=== PATIENT | female | born 1960 | race Caucasian/White ===

== ENCOUNTER → 2020-02-13 13:22 | Outpatient (BNVA) | payer OTHER, SELFPAY | PROVIDERS: PCP Family Medicine; Referring Provider Family Medicine; Visit Provider Obstetrics & Gynecology | DX: Z76.89 Persons encountering health services in other specified circumstances (principal) ==

== ENCOUNTER 2020-03-03 08:18 | Outpatient (REF) | payer OTHER, SELFPAY ==
--- NOTE | 2020-03-03 08:25 | MM_ITS ---
EXAMINATION: MM SCREENING DIGITAL BREAST TOMOSYNTHESIS, BILATERAL CLINICAL INFORMATION: Screening. Asymptomatic. Family history breast cancer, mother. The lifetime risk of breast cancer based on the Tyrer-Cuzick Model is 16%. COMPARISON: Mammography: 01/04/2019, 01/24/2018, 01/03/2017; MRI breasts 02/02/2019 TECHNIQUE: Digital breast tomosynthesis is performed in both the craniocaudal and mediolateral oblique views along with computer-aided detection (CAD). Synthesized 2D images are generated from the tomosynthesis. FINDINGS: The breasts are heterogeneously dense, which may obscure small masses (ACR BI-RADS breast composition Category c). There are no significant masses, abnormal calcifications, or other abnormalities. Scattered bilateral parenchymal asymmetries are similar to prior studies. There are scattered bilateral punctate calcifications. No significant changes. MM/MM tomosynthesis screening BI IMPRESSION: There are no significant changes from prior study. ASSESSMENT: BI-RADS 2: Benign RECOMMENDATION: Routine annual mammography screening. This patient's information was entered into a reminder system with a target due date for their next mammogram.
== END 2020-03-03 08:19 | disposition home or self-care (01) ==
LOC: HO.MAMMO 08:18
PROVIDERS: PCP Family Medicine; Visit Provider Family Medicine
DX: Z12.31 Encounter for screening mammogram for malignant neoplasm of breast (principal); Z01.419 Encounter for gynecological examination (general) (routine) without abnormal findings
CPT/HCPCS: 57452; 77063; 77067

== ENCOUNTER 2020-04-24 06:24 | Day surgery (SDC) | payer OTHER, SELFPAY ==
[2020-04-16 13:31] VITALS: BMI 20.5
--- NOTE | 2020-04-22 14:05 | P.CONAN_ITS ---
Documented by User: Danisha Crawford 04/22/20 14:06 HPI - Anesthesia Eval Consult details Narrative: 60yo F for Colonoscopy [facility] Past Medical History Medical History Anxiety Depression HTN (hypertension) Hyperlipidemia White coat syndrome with hypertension Surgical History Surgical History H/O colonoscopy History of ankle surgery Hx of breast surgery Hx of cataract extraction Hx of cervical discectomy Social History Social History Alcohol intake: current Alcohol intake frequency: holidays/special occasions only Smoking Status: Former smoker Smoked in Last 30 Days: No Smoking Quit Date: 1979 Patient Interested in Nicotine Replacement: No Use of substances other than those prescribed or required for medical reasons: No Advance Directives: No Advance Directives Information Provided: Yes Recently lost weight without trying: No Sexual orientation: Straight/Heterosexual Gender identity: female Meds Allergies Allergy/AdvReac Type Severity Reaction Status Date / Time No Known Allergies Allergy Verified 03/03/20 10:58 Home Medications Medication Instructions Recorded Confirmed Type atorvastatin 10 mg tablet 10 mg PO DAILY 02/13/20 04/16/20 History sodium,potassium,mag sulfates 17.5 177 ml PO 02/13/20 02/13/20 History gram-3.13 gram-1.6 gram oral soln cholecalciferol (vitamin D3) 25 mcg PO DAILY 04/16/20 04/16/20 History [Vitamin D3] loratadine 10 mg PO DAILY 04/16/20 04/16/20 History Exam Exam Date and Time: April 22, 2020 1405 Height,Weight and Vital Signs: Height 5 ft 6 in Weight 57.606 kg Assessment and Plan Assessment Anesthesia Assessment: Chart Reviewed Documented by User: Haydee Douglas 04/24/20 07:32 [facility] Past Medical History Medical History Anxiety Depression HTN (hypertension) Hyperlipidemia White coat syndrome with hypertension Surgical History Surgical History H/O colonoscopy History of ankle surgery Hx of breast surgery Hx of cataract extraction Hx of cervical discectomy Social History Social History Alcohol intake: current Alcohol intake frequency: holidays/special occasions only Smoking Status: Former smoker Smoked in Last 30 Days: No Smoking Quit Date: 1979 Patient Interested in Nicotine Replacement: No Use of substances other than those prescribed or required for medical reasons: No Advance Directives: No Advance Directives Information Provided: Yes Recently lost weight without trying: No Sexual orientation: Straight/Heterosexual Gender identity: female Meds Allergies Allergy/AdvReac Type Severity Reaction Status Date / Time No Known Allergies Allergy Verified 03/03/20 10:58 Home Medications Medication Instructions Recorded Confirmed Type atorvastatin 10 mg tablet 10 mg PO DAILY 02/13/20 04/16/20 History sodium,potassium,mag sulfates 17.5 177 ml PO 02/13/20 02/13/20 History gram-3.13 gram-1.6 gram oral soln cholecalciferol (vitamin D3) 25 mcg PO DAILY 04/16/20 04/16/20 History [Vitamin D3] loratadine 10 mg PO DAILY 04/16/20 04/16/20 History Exam Airway Mallampati Class: II TM Dist: >3cm Neck ROM: Full Assessment and Plan Assessment Anesthesia Assessment: Anesthesia Plan Discussed and Chart Reviewed Final Anesthetic Review NPO: Yes ASA Class: II Final Preanesthetic Review: No Changes in Pt Med Stat, Meds/Allgs Chart Reviewed, Consent Obtained/Reviewed and Anes Risks/Benef Reviewed Patient Risk: Low Procedure Risk: Low Assessment/Block/Sedation in SS: Assess/Block/Sedation-SS Anesthetic Plan Anesthetic Plan: MAC: Disposition: Standard PACU
[2020-04-24 06:47] VITALS: BP 141/71; PULSE 90; RESP 18; TEMP 36.9; O2SAT 100; BMI 20.2
[2020-04-24] MEDS: Lactated Ringers 1,000 ML 100 ML IVCONT (07:23)
--- NOTE | 2020-04-24 07:38 | MHC.SHP ---
Pre-Procedural Eval Section B Chief Complaint: screening Details of Present Illness: Colon cancer screening Relevant Family History (Specify if Yes): No Relevant Social History: None Present Medications: see Short Stay Collaborative assessment Medical History: Significant History (Hypertension, anxiety) History of Previous Operations: Relevant previous surgery/procedure and date(s) (Colonoscopy--10 years ago) Allergies: Allergies Allergy/AdvReac Type Severity Reaction Status Date / Time No Known Allergies Allergy Verified 03/03/20 10:58 Review of Systems Sugical H&P ROS: Negative: Constitution, Cardiovascular, Respiratory, Neurological, Psychiatric and Integumentary Exam Surgical H&P Exam: Normal: HEENT, Normal: Heart, Normal: Lungs, Normal: Extremities and Normal: Abdomen Plan Diagnosis/Plan: Unchanged I have reviewed the history and physical and performed a pertinent physical examination on my patient. No changes have occurred unless specified.YES
[2020-04-24 08:11] VITALS: BP 109/65; PULSE 93; RESP 16; TEMP 36.4; O2SAT 98
--- NOTE | 2020-04-24 08:12 | PM.PROC ---
Brief Operative Note Date of procedure: 04/24/20 Pre-op diagnosis: Colon cancer screening--non-high risk Post-op diagnosis: other (Recto sigmoid/sigmoid diverticulosis) Procedure: Colonoscopy Anesthesia: MAC (Bentley Flores CRNA) Surgeon: Ping Reynoso Estimated blood loss (mL): 0 Pathology: none sent Condition: stable Disposition: PACU
[2020-04-24 08:27] VITALS: BP 134/79; PULSE 91; RESP 16; TEMP 36.4; O2SAT 100
--- NOTE | 2020-04-24 18:37 | OP_ITS ---
SURGEON: Ping Reynoso MD PREOPERATIVE DIAGNOSIS: Colon cancer screening. POSTOPERATIVE DIAGNOSIS: see below PROCEDURE PERFORMED: Colonoscopy. ESTIMATED BLOOD LOSS: No blood loss. COMPLICATIONS: No complications. ANESTHESIA: MAC ANESTHESIOLOGIST: Jennifer Flores CRNA. ASSISTANTS: No syrup mixer assistant. SPECIMENS: No specimens removed. POSTOPERATIVE DIAGNOSES: Significant diverticulosis, rectosigmoid, and internal hemorrhoids. FISHING CAPTAIN: Dr. Reynoso. CONDITION: Postop, stable. DESCRIPTION OF PROCEDURE: Digital rectal exam revealed no specific lesion. Video colonoscope was introduced without difficulty. Within the rectum, we acutely noted an angulation at the rectosigmoid angle with gentle slow maneuvering, we were able to migrate through the rectosigmoid, sigmoid area with multiple diverticula present and lot of redundancy. Scope was then advanced through descending, transverse, ascending colon into the cecum. Appendiceal orifice was seen. Ileocecal valve was well seen. Prep was excellent. Slow rotational views on withdrawing the scope, good detail was seen. As we came down into the descending area, there was again noted overlapping folds. We switched the air insufflation to facilitate distention of the rectosigmoid area that had not been well visualized multiple on insertion: diverticula were seen. No mucosal defects were seen. Anorectal verge was clear. One to 2+ internal hemorrhoids were present. PLAN AND CURRENT RECOMMENDATIONS: Repeat asymptomatic screening, this patient will continue to be 10 years. Postprocedure patient denies any problems with abdominal pain or constipation. She does not need a followup visit. She will be placed on 10 year recall.. GRAFT OR IMPLANTS: No grafts or implants. Ping Reynoso MD MEN/MODL / [id number] MTDD
== END 2020-04-24 08:50 | disposition home or self-care (01) ==
PROVIDERS: PCP Family Medicine; Visit Provider Internal Medicine Gastroenterology
PROC: 0DJD8ZZ Inspection of Lower Intestinal Tract, Via Natural or Artificial Opening Endoscopic (ICD-10-PCS; CPT 45378; principal; 2020-04-24 07:30)
DX: Z12.11 Encounter for screening for malignant neoplasm of colon (principal); I10 Essential (primary) hypertension; K57.30 Diverticulosis of large intestine without perforation or abscess without bleeding; K64.8 Other hemorrhoids; E78.5 Hyperlipidemia, unspecified; F32.9 Major depressive disorder, single episode, unspecified; Z79.899 Other long term (current) drug therapy; Z87.891 Personal history of nicotine dependence
CPT/HCPCS: 45378

== ENCOUNTER 2021-03-30 09:48 | Outpatient (REF) | payer OTHER, SELFPAY ==
[2021-03-30 12:35] LABS: Alanine Aminotransferase 27 U/L (0-31); Albumin Level 4.4 g/dL (3.5-5.0); Alkaline Phosphatase 80 U/L (39-117); Anion Gap 15 (12-20); Aspartate Amino Transferase 56 U/L (5-31); Bilirubin Total 0.7 mg/dL (0.0-1.0); Blood Urea Nitrogen 4 mg/dL (9-16); Calcium 9.8 mg/dL (8.4-10.2); Carbon Dioxide 29 mmol/L (22-29); Chloride 98 mmol/L (96-108); Cholesterol 224 mg/dL; Estimated Glomerular Filt Rate > 60; Glucose Fasting 87 mg/dL (60-99); HDL Cholesterol 97 mg/dL; LDL Cholesterol Calculated 117 mg/dl; Potassium 4.8 mmol/L (3.3-5.1); Sodium 137 mmol/L (135-145); Total Protein 7.4 g/dL (6.5-8.0); Triglycerides 53 mg/dL
[2021-03-30 12:43] LABS: TSH reflex Free T4 1.96 uIU/mL (0.32-4.0)
== END 2021-03-30 09:49 | disposition home or self-care (01) ==
LOC: HO.WFDLDS 09:48
PROVIDERS: Visit Provider Family Medicine
DX: Z00.00 Encounter for general adult medical examination without abnormal findings (principal); Z13.29 Encounter for screening for other suspected endocrine disorder; Z13.220 Encounter for screening for lipoid disorders
CPT/HCPCS: 36415; 80053; 80061; 84443

== ENCOUNTER 2021-04-07 08:29 | Outpatient (REF) | payer OTHER, SELFPAY ==
--- NOTE | ~2021-04-07 | MM_ITS ---
EXAMINATION: MM SCREENING DIGITAL BREAST TOMOSYNTHESIS, BILATERAL CLINICAL INFORMATION: Screening. Asymptomatic. The lifetime risk of breast cancer based on the Tyrer-Cuzick Model is 12%. COMPARISON: Mammography: 03/03/2020, 01/04/2019, 01/24/2018; MRI breasts 02/02/2019 TECHNIQUE: Digital breast tomosynthesis is performed in both the craniocaudal and mediolateral oblique views along with computer-aided detection (CAD). Synthesized 2D images are generated from the tomosynthesis. FINDINGS: The breasts are heterogeneously dense, which may obscure small masses (ACR BI-RADS breast composition Category c). There are no significant masses, abnormal calcifications, or other abnormalities. Parenchymal pattern is similar to prior exams. No developing density. The axilla and skin contours are unremarkable. MM/MM tomosynthesis screening BI IMPRESSION: No mammographic evidence of malignancy. ASSESSMENT: BI-RADS 1: Negative RECOMMENDATION: Routine annual mammography screening. This patient's information was entered into a reminder system with a target due date for their next mammogram.
== END 2021-04-07 08:30 | disposition home or self-care (01) ==
LOC: HO.MAMMO 08:29
PROVIDERS: Visit Provider Family Medicine
DX: Z12.31 Encounter for screening mammogram for malignant neoplasm of breast (principal)
CPT/HCPCS: 77063; 77067

== ENCOUNTER 2021-05-12 08:32 | Outpatient (REF) | payer OTHER, SELFPAY ==
[2021-05-15 03:36] LABS: HPV mRNA E6/E7 rflx Not Detected (Not Detected)
== END 2021-05-12 08:33 | disposition home or self-care (01) ==
LOC: HO.LAB 08:32
PROVIDERS: PCP Family Medicine; Visit Provider Obstetrics & Gynecology
DX: Z01.419 Encounter for gynecological examination (general) (routine) without abnormal findings (principal); Z11.51 Encounter for screening for human papillomavirus (HPV)
CPT/HCPCS: 87624; 88142

== ENCOUNTER 2021-06-23 08:56 | Outpatient (REF) | payer OTHER, SELFPAY | END 2021-06-23 08:57 | disposition home or self-care (01) | LOC: HO.LAB 08:56 | PROVIDERS: Visit Provider Obstetrics & Gynecology | DX: R87.612 Low grade squamous intraepithelial lesion on cytologic smear of cervix (LGSIL) (principal) | CPT/HCPCS: 57454; 88305 ==

== ENCOUNTER → 2021-07-07 14:26 | Outpatient (BNVA) | payer OTHER, SELFPAY | PROVIDERS: Visit Provider Obstetrics & Gynecology | DX: N87.0 Mild cervical dysplasia (principal) | CPT/HCPCS: Q3014 ==

== ENCOUNTER 2021-11-25 10:29 | Outpatient (REF) | payer OTHER, SELFPAY ==
[2021-11-25 14:32] LABS: Anion Gap 16 (12-20); Blood Urea Nitrogen 8 mg/dL (9-16); Calcium 9.6 mg/dL (8.4-10.2); Carbon Dioxide 28 mmol/L (22-29); Chloride 90 mmol/L (96-108); Estimated Glomerular Filt Rate > 60; Glucose Random 167 mg/dL (60-115); Potassium 4.9 mmol/L (3.3-5.1); Sodium 129 mmol/L (135-145)
== END 2021-11-25 10:30 | disposition home or self-care (01) ==
LOC: HO.WFDLDS 10:29
PROVIDERS: Visit Provider Family Medicine
DX: Z00.00 Encounter for general adult medical examination without abnormal findings (principal); I10 Essential (primary) hypertension
CPT/HCPCS: 36415; 80048

== ENCOUNTER 2022-03-18 09:33 | Outpatient (REF) | payer OTHER, SELFPAY ==
[2022-03-18 10:51] LABS: MANUAL DIFF FLAG NO
[2022-03-18 10:59] LABS: Basophils Absolute Auto 0.1 X10*3/uL (0.0-0.2); Basophils Percent Auto 2.2 % (0-2); Eosinophils Absolute Auto 0.1 X10*3/uL (0.0-0.4); Eosinophils Percent Auto 2.4 % (0-4); Hematocrit 35.2 % (37.0-47.0); Hemoglobin 12.1 g/dl (12.0-16.0); Imm Gran Abs Auto 0.02 X10*3/uL (0.00-0.03); Imm Gran Pct Auto 0.4 % (0.0-0.4); Lymphocytes Percent Auto 22.3 % (20-40); Mean Corpuscular HGB Conc 34.4 g/dl (31.0-35.0); Mean Corpuscular Volume 98.9 fL (80.0-98.0); Mean Platelet Volume 10.2 fL (9.4-12.3); Monocytes Absolute Auto 0.4 X10*3/uL (0.1-1.2); Monocytes Percent Auto 9.3 % (2-11); Neutrophils Absolute Auto 2.9 x10*3/uL (2.0-8.3); Neutrophils Percent Auto 63.4 % (45-73); Platelet Count 351 X10*3/uL (160-400); Red Blood Count 3.56 X10*6/uL (4.20-5.50); Red Cell Distribution Width 12.2 % (11.0-16.0); White Blood Count 4.5 X10*3/uL (4.8-10.8)
[2022-03-18 11:37] LABS: Alanine Aminotransferase 15 U/L (0-31); Albumin Level 4.6 g/dL (3.5-5.0); Alkaline Phosphatase 57 U/L (39-117); Anion Gap 13 (12-20); Aspartate Amino Transferase 23 U/L (5-31); Bilirubin Total 0.9 mg/dL (0.0-1.0); Blood Urea Nitrogen 11 mg/dL (9-16); Calcium 10.3 mg/dL (8.4-10.2); Carbon Dioxide 28 mmol/L (22-29); Chloride 92 mmol/L (96-108); Cholesterol 225 mg/dL; Estimated Glomerular Filt Rate > 60; Glucose Fasting 115 mg/dL (60-99); HDL Cholesterol 90 mg/dL; LDL Cholesterol Calculated 121 mg/dl; Potassium 4.9 mmol/L (3.3-5.1); Sodium 128 mmol/L (135-145); TSH reflex Free T4 3.05 uIU/mL (0.32-4.0); Total Protein 7.3 g/dL (6.5-8.0); Triglycerides 74 mg/dL
== END 2022-03-18 09:34 | disposition home or self-care (01) ==
LOC: HO.WFDLDS 09:33
PROVIDERS: Visit Provider Family Medicine
DX: Z00.00 Encounter for general adult medical examination without abnormal findings (principal)
CPT/HCPCS: 36415; 80053; 80061; 84443; 85025

== ENCOUNTER 2022-04-13 08:24 | Outpatient (REF) | payer OTHER, SELFPAY ==
--- NOTE | ~2022-04-13 | MM_ITS ---
EXAMINATION: MM SCREENING DIGITAL BREAST TOMOSYNTHESIS, BILATERAL CLINICAL INFORMATION: Screening. Asymptomatic. The lifetime risk of breast cancer based on the Tyrer-Cuzick Model is 12.0%. COMPARISON: Mammography: April 07, 2021 and studies dating back to December 31, 2015 TECHNIQUE: Digital breast tomosynthesis is performed in both the craniocaudal and mediolateral oblique views along with computer-aided detection (CAD). Synthesized 2D images are generated from the tomosynthesis. FINDINGS: The breasts are extremely dense, which lowers the sensitivity of mammography (ACR BI-RADS breast composition Category d). There are no significant masses, abnormal calcifications, or other abnormalities. MM/MM tomosynthesis screening BI IMPRESSION: No significant changes from prior exam. ASSESSMENT: BI-RADS 1: Negative RECOMMENDATION: Routine annual mammography screening. This patient's information was entered into a reminder system with a target due date for their next mammogram.
== END 2022-04-13 08:25 | disposition home or self-care (01) ==
LOC: HO.MAMMO 08:24
PROVIDERS: Visit Provider Family Medicine
DX: Z12.31 Encounter for screening mammogram for malignant neoplasm of breast (principal)
CPT/HCPCS: 77063; 77067

== ENCOUNTER 2022-05-18 08:31 | Outpatient (REF) | payer OTHER, SELFPAY ==
[2022-05-20 00:39] LABS: HPV mRNA E6/E7 rflx Not Detected (Not Detected)
== END 2022-05-18 08:32 | disposition home or self-care (01) ==
LOC: HO.LNP 08:31
PROVIDERS: PCP Family Medicine; Visit Provider Obstetrics & Gynecology
DX: Z01.419 Encounter for gynecological examination (general) (routine) without abnormal findings (principal); Z11.51 Encounter for screening for human papillomavirus (HPV); N87.0 Mild cervical dysplasia
CPT/HCPCS: 87624; 88142

== ENCOUNTER 2022-06-30 12:01 | Outpatient (REF) | payer OTHER, SELFPAY ==
[2022-06-30 14:11] LABS: Anion Gap 13 (12-20); Blood Urea Nitrogen 9 mg/dL (9-16); Calcium 9.7 mg/dL (8.4-10.2); Carbon Dioxide 29 mmol/L (22-29); Chloride 93 mmol/L (96-108); Estimated Glomerular Filt Rate > 60; Glucose Random 106 mg/dL (60-115); Potassium 5.2 mmol/L (3.3-5.1); Sodium 130 mmol/L (135-145)
== END 2022-06-30 12:02 | disposition home or self-care (01) ==
LOC: HO.WFDLDS 12:01
PROVIDERS: Visit Provider Hospitalist
DX: E87.1 Hypo-osmolality and hyponatremia (principal); R73.09 Other abnormal glucose
CPT/HCPCS: 36415; 80048

== ENCOUNTER 2023-04-20 08:26 | Outpatient (REF) | payer OTHER, SELFPAY | END 2023-04-20 08:27 | disposition home or self-care (01) | LOC: HO.MAMMO 08:26 | PROVIDERS: PCP Family Medicine; Visit Provider Family Medicine | DX: Z12.31 Encounter for screening mammogram for malignant neoplasm of breast (principal) | CPT/HCPCS: 77063; 77067 ==

== ENCOUNTER → 2023-04-20 08:30 | Outpatient (BNV) | payer OTHER, SELFPAY | PROVIDERS: PCP Family Medicine; Visit Provider Radiology Diagnostic Radiology | DX: Z12.31 Encounter for screening mammogram for malignant neoplasm of breast (principal) | CPT/HCPCS: 77063; 77067 ==

== ENCOUNTER 2023-06-29 09:32 | Outpatient (AMB) | payer OTHER, SELFPAY ==
--- NOTE | 2023-06-29 09:50 | A.OFFVIS_ITS ---
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 No complaints. Last Pap/HPV was negative in 05/10 Last Mammogram was BI-RADS 1 in 05/11 Last screening colonoscopy was in 2020, the recommendation was to repeat in 10 years [facility] Medical History Dysplasia of cervix, low grade (VANI 1) Hyperlipidemia White coat syndrome with hypertension HTN (hypertension) Anxiety Depression Surgical History H/O colonoscopy Hx of cervical discectomy Hx of cataract extraction History of ankle surgery Hx of breast surgery Social History Housing: House Alcohol intake: current Alcohol intake frequency: holidays/special occasions only Patient Tobacco Use Status: Never used Tobacco e-Cigarette/Vaping Use: Never Used Second Hand Smoke Exposure: No service: No Current occupational status: retired Current occupational exposures/hazards: No Sexual orientation: Straight/Heterosexual Gender identity: Female Cognitive needs: No Hearing needs: No Vision needs: No Female Reproductive History Menstrual Age of Menarche: 10 Menopause type: natural Total pregnancies: 3 Full term: 2 Ab induced: 1 Date of last pap smear: 05/18/22 Date of Mammogram: 04/20/23 Review of Systems Const All systems reviewed & are unremarkable except as noted in HPI and below Card Reports as per HPI Resp Reports as per HPI GI Reports as per HPI and Reports no additional complaints Reports as per HPI Physical Exam Vital Signs: Last Vital Signs BP 126/74 06/29/23 09:51 BMI result Body Mass Index 22.7 Const General: cooperative, healthy appearing and comfortable Chest Chest palpation & inspection: normal inspection of the chest and normal palpation of entire chest wall Breast/axilla inspection: normal inspection of the breasts and normal inspection of the axillae Breast/axilla palpation: normal palpation of the breasts, normal palpation of the axillae and no axillary lymphadenopathy Resp Effort & Inspection: normal respiratory effort Auscultation: clear to auscultation bilaterally Percussion: percussion normal Cardio Palpation: normal PMI Rate: regular rate Rhythm: regular rhythm Heart sounds: no murmurs and no rubs Peripheral pulses: Peripheral pulses 2+ throughout GI Inspection: Yes normal to inspection Palpation (GI): Soft to palpation, nontender, no guarding, not rigid and No hepatosplenomegaly present Percussion: Yes normal to percussion Auscultation: normal bowel sounds Rectal Exam - Female: deferred General: Yes bladder normal to palpation External Female Exam: No lesion Speculum Exam - Vagina: normal appearance of the vagina, normal palpation, normal vaginal discharge and not erythematous Speculum Exam - Cervix: normal appearance of the cervix and normal palpation Bimanual exam- vagina & uterus: normal bimanual exam, normal palpation, uterine size normal, bladder normal to palpation, consistency normal and normal palpation Bimanual Exam- Adnexa, other: normal adnexae, no masses and no tenderness Assessment & Plan Assessment & Plan (1) Well woman exam: Comment: VANI 1 in 2021 followed by negative co testing in 2022 Code(s): Z01.419 - Encounter for gynecological examination (general) (routine) without abnormal findings Plan: Co testing not indicated this year, co testing will be due in 2025 Counseled the patient about the recommended dietary allowance of 1200 mg of Calcium & 600 IU of vitamin D. Instructions given the patient to schedule next screening Mammogram in 05/12. The patient was instructed to perform monthly self-breast exams and schedule annual exam in a year. All questions answered and the patient verbalized understanding. Coding Level of Care Code Est Pt Prev Care 40-64y(25534) Diagnoses Well woman exam Z01.419
[2023-06-29 09:51] VITALS: BP 126/74; BMI 22.7
== END 2023-06-29 10:37 | disposition home or self-care (01) ==
LOC: HO.HWS 09:33
PROVIDERS: PCP Family Medicine; Visit Provider Obstetrics & Gynecology
DX: Z01.419 Encounter for gynecological examination (general) (routine) without abnormal findings (principal)
CPT/HCPCS: 99396

== ENCOUNTER → 2023-06-29 09:32 | Outpatient (BNVA) | payer OTHER, SELFPAY | PROVIDERS: PCP Family Medicine; Visit Provider Obstetrics & Gynecology ==

== ENCOUNTER 2023-08-10 08:24 | Outpatient (AMB) | payer OTHER, SELFPAY ==
[2023-08-10 08:27] VITALS: BP 152/80; PULSE 67; RESP 14; TEMP 36.6; O2SAT 99; BMI 23.1
--- NOTE | 2023-08-10 08:27 | A.OFFPC_ITS ---
Vital Signs 08/10/23 08:27 Height 5 ft Weight 118 lb 2 oz BMI 23.1 BP 152/80 H Blood Pressure Location Lt brachial Position Sitting Respiration 14 Pulse 67 Pulse Source Pulse Oximeter Temp 97.9 F Temp Source Temporal Artery Scan Pulse Oximetry (%) 99 Oxygen Delivery Method Room Air Intake Visit Reasons: Annual PE /transfer of care from [place] [employer] Director Required: No Accompanied by: Self / Same As Patient Allergies No Known Allergies Allergy (Verified 08/10/23 08:33) Tobacco use date assessed: 08/10/23 Fall risk assessment: No Falls in past year Last assessed Fall Risk: 08/10/23 Dental Screening Dental Screen Date: 08/10/23 Did you have a dental visit in the last 12 months?: Yes Did you have a dental problem in the last 6 months where you did not have access to dental care?: No Was dental information given to patient?: Patient has dentist HPI Annual PE /transfer of care from [place] HPI Details 63 y/o female presents for a CPE with f/ u labs and health maintenance. No recent labs to review. Blood pressure today 152/80. She is on lisinopril 10mg, metoprolol 100mg daily. She notes she does have some white coat syndrome. She notes her blood pressure at her [employer] had been fine the other week. [facility] Medical History Dysplasia of cervix, low grade (VANI 1) Hyperlipidemia White coat syndrome with hypertension HTN (hypertension) Anxiety Depression Surgical History H/O colonoscopy Hx of cervical discectomy Hx of cataract extraction History of ankle surgery Hx of breast surgery Social History Household Members: None Housing: House Alcohol intake: current Alcohol intake frequency: holidays/special occasions only Patient Tobacco Use Status: Never used Tobacco e-Cigarette/Vaping Use: Never Used Second Hand Smoke Exposure: No service: No Current occupational status: retired Current occupational exposures/hazards: No Sexual orientation: Straight/Heterosexual Gender identity: Female Cognitive needs: No Hearing needs: No Vision needs: No Female Reproductive History Menstrual Age of Menarche: 10 Questionnaire PHQ-9 Over the last 2 weeks, how often have you been bothered by any of the following problems? 1. Little interest or pleasure in doing things: not at all 2. Feeling down, depressed, or hopeless: not at all 3. Trouble falling or staying asleep, or sleeping too much: not at all 4. Feeling tired or having little energy: not at all 5. Poor appetite or overeating: not at all 6. Feeling bad about yourself - or that you are a failure or have let yourself or your family down: not at all 7. Trouble concentrating on things, such as reading the newspaper or watching television: not at all 8. Moving or speaking so slowly that other people could have noticed. Or the opposite - being so fidgety or restless that you have been moving around a lot more than usual: not at all 9. Thoughts that you would be better off or of hurting yourself in some way: not at all Total score: 0 Depression Screening Interpretation: Negative Depression Screening Done: Yes 64416 - PHQ-9 Billing: Yes Source: Developed by Drs. Leonel Meneses, Karin Aleln, Calvin Borrero and colleagues, with an educational kathy from [employer]. Thrive Questionnaire Date Thrive assessed: 08/10/23 I am a: Patient What is your living situation today?: I have a steady place to live Within the past 12 months, did the food you bought not last and you didn't have the money to get more?: Never true Within the past 12 months, did you worry whether your food would run out before you got money to buy more?: Never true Do you have trouble paying for medicines?: No Do you have trouble getting transportation to medical appointments?: No Do you have trouble paying your heating and electricity bill?: No Do you have trouble taking care of your child, family member or friend?: No Do you have trouble with day-to-day activities such as bathing, preparing meals, shopping, managing finances, etc.?: No Are you currently unemployed and looking for a job?: No Are you interested in more education?: No Please select the resources that you would like help with: None Currently or been in a relationship where the following occur: no concerns reported THRIVE Score: 0 AUDIT C Alcohol Use Questionnaire (AUDIT-C) 1. How often do you have a drink containing alcohol?: Monthly or less 2. How many drinks containing alcohol do you have on a typical day when you are drinking?: 1 or 2 3. How often do you have six or more drinks on one occasion?: Never Total Score: 1 VIRGINIA-7 AMB Questionnaire VIRGINIA-7 Date VIRGINIA - 7 assessed: 08/10/23 Feeling nervous, anxious, or on edge: 0 = Not at all Not being able to stop or control worryin = Not at all Worrying too much about different things: 0 = Not at all Trouble relaxin = Not at all Being so restless that it is hard to sit still: 0 = Not at all Becoming easily annoyed or irritable: 0 = Not at all Feeling afraid as if something awful might happen: 0 = Not at all Total VIRGINIA-7 score (0-4 normal; 5-9 mild; 10-14 moderate; 15-21 severe): 0 Source: Developed by Drs. Leonel Meneses, Karin Allen, Calvin Borrero and colleagues, with an educational kathy from [employer]. VIRGINIA-7 Assessment Billing VIRGINIA-7 Assessment Tool: VIRGINIA-7 Assessment 72015 Review of Systems Const Denies chills, Denies fatigue, Denies fever(s), Denies headache(s) and Denies weakness Eyes Denies change in vision ENT Denies dizziness, Denies headache(s), Denies hearing loss, Denies nasal congestion, Denies sinus pain, Denies sinus pressure and Denies sore throat Card Denies chest pain, Denies lightheadedness, Denies dyspnea and Denies other (palpitations) Resp Denies cough, Denies dyspnea and Denies wheezing GI Denies abdominal pain, Denies melena, Denies hematochezia, Denies change in bowel habits, Denies dyspepsia and Denies nausea Denies hematuria and Denies dysuria Musc Denies abnormal gait, Denies myalgias, Denies arthralgias, Denies numbness and Denies tingling Skin/Breast Denies rash, Denies unusual bruising and Denies wounds Neuro Denies abnormal gait, Denies dizziness, Denies headache(s), Denies memory loss, Denies numbness, Denies Sensory deficit (Neuro), Denies tingling and Denies weakness Psych Denies anxiety, Denies depression and Denies memory loss Endo Denies cold intolerance, Denies fatigue, Denies heat intolerance, Denies polydipsia and Denies polyuria Conor/Lymph Denies easy bleeding and Denies easy bruising Aller/Immun Denies wheezing Physical exam (Primary Care) Vital Signs: Last Vital Signs Temp 97.9 F 08/10/23 08:27 Pulse 67 08/10/23 08:27 Resp 14 08/10/23 08:27 BP 152/80 H 08/10/23 08:27 Pulse Ox 99 08/10/23 08:27 Oxygen Delivery Method Room Air 08/10/23 08:27 BMI result Body Mass Index 23.1 Tobacco/Smoking Status: Tobacco use Status Tobacco use date assessed 08/10/23 08/10/23 08:37 Patient Tobacco Use Status Never used Tobacco 08/10/23 08:37 e-Cigarette/Vaping Use Never Used 08/10/23 08:37 PHQ-9: PHQ-9 Score PHQ-9: Total score 0 08/10/23 08:46 Depression Screening Interpretation: Negative Thrive Assessment: Date of Thrive Assessment Date Thrive assessed 08/10/23 08/10/23 08:37 Currently or been in a relationship where the following occur: no concerns reported Const General: no acute distress, well developed, alert and awake Nutritional Appearance: well nourished Orientation/consciousness: patient oriented x3 HENMT Head: Yes normocephalic and Yes atraumatic Ears: hearing grossly normal bilaterally and TM's normal bilaterally General nose exam: Normal external nose present and Normal nares present Mouth: Normal oral and palatal mucosa present and moist mucous membranes Teeth and gingiva: dentition normal Throat: Yes posterior oropharynx normal Eyes General: appearance normal, both eyes and all related structures Pupils: Equal, round and reactive pupils present and Pupil accommodation reflex normal EOM: EOMs intact bilaterally Neck Neck: Yes normal visual inspection, Yes no lymphadenopathy and Yes trachea midline Thyroid: Thyroid normal Carotids: no bruits Lymphatic: no lymphadenopathy noted Chest Chest palpation & inspection: normal inspection of the chest Resp Effort & Inspection: normal respiratory effort Auscultation: clear to auscultation bilaterally Cardio Rate: regular rate Rhythm: regular rhythm Heart sounds: S1 normal heart sound present, S2 normal heart sound present, no gallops, no murmurs and no rubs Bruits: no abdominal aortic bruits and no carotid bruits GI Palpation (GI): No Abdominal aortic bruit present, Soft to palpation, nontender, No hepatosplenomegaly present and No Rebound tenderness present Auscultation: normal bowel sounds General: Yes no CVA tenderness Back/Spine/Pelvis Back: no CVA tenderness Cervical Spine: cervical ROM normal and No Cervical spine tenderness Thoracic/Lumbar Spine: thoraco-lumbar ROM normal, No pain with thoraco-lumbar ROM, No thoracic spinal tenderness and No lumbar spinal tenderness Skin Lesions: no lesions Rashes: no rashes Trauma: no lacerations or abrasions Wounds: no wounds Nails: normal Neuro General: patient oriented x3 Cranial nerves: Yes Equal, round and reactive pupils present Cognition (Neuro): normal cognition Gait exam (Neuro): Normal gait present Motor exam (neuro): 5/5 motor strength present throughout Sensory Exam: No Sensory deficit (Neuro) Deep tendon reflexes (DTR's): Right patellar reflex intensity grade: 2+ and Left patellar reflex intensity grade: 2+ Extrem General: Yes normal to inspection and No edema Psych Appearance: grossly normal Affect: normal affect Attitude: cooperative Thought process: Normal thought process present Assessment and Plan Assessment & Plan (1) Adult general medical exam: Code(s): Z00.00 - Encounter for general adult medical examination without abnormal findings Plan: 63-year-old?female?presents?for?complete?physical?exam Encouraged?healthy?diet?with?active?lifestyle?and?plenty?of?exercise (2) HTN (hypertension): Code(s): I10 - Essential (primary) hypertension Plan: Some?hypertension?with?known?white?coat?syndrome.??Patient?was?seen?at?equal opportunity representative?offic e?last?month?and?blood?pressure?was?well?controlled.??Blood?pressure?is?are?well ?controlled?at?home?though?recently?she?has?not?checking?much. Blood?pressure?elevated?in?the?office?today Encouraged?her?to?check?her?blood?pressures?at?home.??She?can?let?me?know?if?blo od?pressures?are?creeping?up?at?home. Continue?current?medication?regimen (3) Witnessed episode of apnea: Code(s): R06.81 - Apnea, not elsewhere classified Plan: Referred?for?sleep?medicine (4) Screening for colon cancer: Code(s): Z12.11 - Encounter for screening for malignant neoplasm of colon Plan: Followed?at?[facility] [place]?and?last?colonoscopy?about?6?years?ago.??Told?to?follow- up?in?10?year Next?colonoscopy?at?age?69 Up-to-date (5) Screening for osteoporosis: Code(s): Z13.820 - Encounter for screening for osteoporosis Plan: History?of?osteopenia Check?bone?density?test (6) Breast cancer screening by mammogram: Code(s): Z12.31 - Encounter for screening mammogram for malignant neoplasm of breast Plan: Mammogram?in?April?was?negative?for?malignancy Continue?annual?screen (7) Screening for cervical cancer: Code(s): Z12.4 - Encounter for screening for malignant neoplasm of cervix Plan: Prior?VANI?1?abnormality?but?more?recently?in?June?her?Pap?smear?was?negative Follow-up?with?equal opportunity representative?as?recommended Up-to-date Orders: Orders Vitamin D 25-OH Total Today E55.9 - Vitamin D deficiency, unspecified Complete Blood Count Auto Diff Today Z00.00 - Encounter for general adult medical examination without abnormal findings TSH reflex Free T4 Today Z00.00 - Encounter for general adult medical examination without abnormal findings Comprehensive [place]. Panel Fast Today Z00.00 - Encounter for general adult medical examination without abnormal findings Lipid Panel Today Z00.00 - Encounter for general adult medical examination without abnormal findings Microalbumin, Random (w Creat) Today I10 - Essential (primary) hypertension UA and rflx microscopic Today Z00.00 - Encounter for general adult medical examination without abnormal findings XR DEXA axial skeleton Today M81.0 - Age-related osteoporosis without current pathological fracture, M85.80 - Other specified disorders of bone density and structure, unspecified site Referrals Sleep Medicine Referral R06.81 - Apnea, not elsewhere classified Coding Level of Care Code Est Pt Level 3 (31000) Est Pt Prev Care 40-64y(89577) Diagnoses Adult general medical exam Z00.00 HTN (hypertension) I10 Witnessed episode of apnea R06.81 Screening for colon cancer Z12.11 Screening for osteoporosis Z13.820 Breast cancer screening by mammogram Z12.31 Screening for cervical cancer Z12.4 Additional Codes VIRGINIA-7 Assessment Billing - VIRGINIA-7 Assessment Tool: VIRGINIA-7 Assessment 10230 ([id number])
== END 2023-08-10 10:15 | disposition home or self-care (01) ==
PROVIDERS: PCP Hospitalist; Visit Provider Family Medicine
DX: Z00.00 Encounter for general adult medical examination without abnormal findings (principal); I10 Essential (primary) hypertension; R06.81 Apnea, not elsewhere classified
CPT/HCPCS: 99396

== ENCOUNTER 2023-08-10 09:36 | Outpatient (REF) | payer OTHER, SELFPAY ==
[2023-08-10 11:32] LABS: MANUAL DIFF FLAG NO
[2023-08-10 11:41] LABS: Appearance Urine Cloudy; Color Urine Yellow; Glucose Urine UA Negative (Negative); Leukocyte Esterase Urine Large (3+) (Negative); Nitrite Urine Negative (Negative); Specific Gravity - Urine 1.015 (1.005-1.025); UMIC TRIGGER UA YES; Urine Blood Negative (Negative); Urine Ketones Trace mg/dL (Negative); Urine Protein Trace mg/dL (Neg-Trace)
[2023-08-10 11:46] LABS: Basophils Absolute Auto 0.1 X10*3/uL (0.0-0.2); Basophils Percent Auto 1.6 % (0-2); Eosinophils Absolute Auto 0.3 X10*3/uL (0.0-0.4); Hematocrit 33.5 % (37.0-47.0); Hemoglobin 11.7 g/dl (12.0-16.0); Imm Gran Abs Auto 0.02 X10*3/uL (0.00-0.03); Imm Gran Pct Auto 0.3 % (0.0-0.4); Lymphocytes Absolute Auto 0.8 X10*3/uL (1.2-4.9); Lymphocytes Percent Auto 11.6 % (20-40); Mean Corpuscular HGB Conc 34.9 g/dl (31.0-35.0); Mean Corpuscular Volume 97.4 fL (80.0-98.0); Mean Platelet Volume 9.7 fL (9.4-12.3); Monocytes Absolute Auto 0.6 X10*3/uL (0.1-1.2); Monocytes Percent Auto 9.5 % (2-11); Neutrophils Absolute Auto 4.7 x10*3/uL (2.0-8.3); Platelet Count 416 X10*3/uL (160-400); Red Blood Count 3.44 X10*6/uL (4.20-5.50); Red Cell Distribution Width 11.9 % (11.0-16.0); White Blood Count 6.5 X10*3/uL (4.8-10.8)
[2023-08-10 12:08] LABS: Bacteria Urine 1+ (None Seen); Hyaline Casts Urine 0-2 /LPF (0-2); RBC Urine 0-2 /HPF (0-2); Squamous Epithelial Cell Urine >20 /HPF (0-2)
[2023-08-10 12:20] LABS: Creatinine Urine 183.84 mg/dL; Microalbum/Creatinine Ratio Ur 11.9 ug/mg cr (<30)
[2023-08-10 12:41] LABS: Alanine Aminotransferase 9 U/L (0-31); Albumin Level 4.3 g/dL (3.5-5.0); Alkaline Phosphatase 68 U/L (39-117); Anion Gap 14 (12-20); Aspartate Amino Transferase 18 U/L (5-31); Bilirubin Total 0.6 mg/dL (0.0-1.0); Blood Urea Nitrogen 8 mg/dL (9-16); Carbon Dioxide 27 mmol/L (22-29); Chloride 90 mmol/L (96-108); Cholesterol 189 mg/dL (<200); Estimated Glomerular Filt Rate > 60; Glucose Fasting 98 mg/dL (60-99); HDL Cholesterol 80 mg/dL (>40); LDL Cholesterol Calculated 99 mg/dL (<100); Potassium 4.7 mmol/L (3.3-5.1); Sodium 126 mmol/L (135-145); Total Protein 7.9 g/dL (6.5-8.0); Triglycerides 52 mg/dL (<150)
[2023-08-10 12:47] LABS: TSH reflex Free T4 1.37 uIU/mL (0.32-4.0); Vitamin D 25-OH Total 51.6 ng/mL (>30)
== END 2023-08-10 09:37 | disposition home or self-care (01) ==
LOC: HO.WFDLDS 09:36
PROVIDERS: Visit Provider Family Medicine
DX: Z00.00 Encounter for general adult medical examination without abnormal findings (principal); I10 Essential (primary) hypertension; E55.9 Vitamin D deficiency, unspecified
CPT/HCPCS: 36415; 80053; 80061; 81001; 82043; 82306; 82570; 84443; 85025

== ENCOUNTER → 2023-09-08 13:41 | Outpatient (AMB) | payer OTHER, SELFPAY ==
--- NOTE | 2023-09-08 13:34 | A.OFFPC_ITS ---
Intake Visit Reasons: follow up labs Intake Note: Patient is shceduled to follow up on her labs today, she states she was recently seen at an urgent care for bronchitis and received prednisone, an antibiotic, and cough medicine. Allergies No Known Allergies Allergy (Verified 09/08/23 13:35) Tobacco use date assessed: 09/08/23 Fall risk assessment: No Falls in past year Last assessed Fall Risk: 09/08/23 Dental Screening Dental Screen Date: 08/10/23 HPI follow up labs HPI Details 63 y/o female presents to f/u labs via t [employer]. Also ordered bone density test. Labs were drawn 08/10/23. Reviewed labs with pt. Mild anemia. Triglycerides 52. TC 189. LDL 99. HDL 80. She is on artovastatin 10mg daily. PFSH Medical History Dysplasia of cervix, low grade (VANI 1) Hyperlipidemia White coat syndrome with hypertension HTN (hypertension) Anxiety Depression Surgical History H/O colonoscopy Hx of cervical discectomy Hx of cataract extraction History of ankle surgery Hx of breast surgery Social History Household Members: None Housing: House Alcohol intake: current Alcohol intake frequency: holidays/special occasions only Patient Tobacco Use Status: Never used Tobacco e-Cigarette/Vaping Use: Never Used Second Hand Smoke Exposure: No service: No Current occupational status: retired Current occupational exposures/hazards: No Sexual orientation: Straight/Heterosexual Gender identity: Female Cognitive needs: No Hearing needs: No Vision needs: No Female Reproductive History Menstrual Age of Menarche: 10 Questionnaire Thrive Questionnaire Date Thrive assessed: 08/10/23 VIRGINIA-7 AMB Questionnaire VIRGINIA-7 Date VIRGINIA - 7 assessed: 08/10/23 Source: Developed by Drs. Leonel Meneses, Karin Allen, Calvin Borrero and colleagues, with an educational kathy from [employer]. Review of Systems Const Denies chills, Denies fatigue, Denies fever(s), Denies headache(s) and Denies weakness ENT Denies dizziness and Denies headache(s) Card Denies dyspnea Resp Denies cough, Denies dyspnea, Denies wheezing and Denies other (shortness of breath) Musc Denies numbness and Denies tingling Neuro Denies dizziness, Denies headache(s), Denies numbness, Denies tingling and Denies weakness Psych Denies anxiety and Denies depression Endo Denies fatigue Aller/Immun Denies wheezing Physical exam (Primary Care) Tobacco/Smoking Status: Tobacco use Status Tobacco use date assessed 09/08/23 09/08/23 13:40 Patient Tobacco Use Status Never used Tobacco 09/08/23 13:40 e-Cigarette/Vaping Use Never Used 09/08/23 13:40 Thrive Assessment: Date of Thrive Assessment Date Thrive assessed 08/10/23 09/08/23 13:40 Telehealth Telehealth Telehealth Platform: Telephone Location of provider rendering services: practice address Location of patient: address on file Patient Identification confirmed using: Name, : Yes Telehealth method: voice only Patient verbally consented to treatment: Yes Patient verbally consented to billing insurance company: Yes Patient informed of any privacy concerns related to visit: Yes Minutes spent on Phone/Video with Pt.: 8 Assessment and Plan Assessment & Plan (1) Mild anemia: Code(s): D64.9 - Anemia, unspecified Plan: Mild?normocytic?anemia Will?recheck?CBC?prior?to?next?visit?and?review?with?patient (2) Hyperlipidemia: Code(s): E78.5 - Hyperlipidemia, unspecified Plan: Lipids?are?well?controlled Continue?atorvastatin?as?prescribed (3) Bronchitis: Code(s): J40 - Bronchitis, not specified as acute or chronic Plan: Recent?bout?of?bronchitis Still?finishing?up?antibiotic?prescribed?by?urgent?care?provider Has?finished?prednisone Has?finished?benzonatate?but?would?like?a?new?script?for?this?as?she?says?it?was ?helping?her?cough Will?send?a?short?script?for?additional?benzonatate Orders: Orders Comprehensive Met. Panel Today E87.1 - Hypo-osmolality and hyponatremia UA and rflx microscopic Today I10 - Essential (primary) hypertension, Z00.00 - Encounter for general adult medical examination without abnormal findings Complete Blood Count Auto Diff Today D64.9 - Anemia, unspecified, Z00.00 - Encounter for general adult medical examination without abnormal findings Medications: New benzonatate 100 mg PO BID 5 days PRN 10 caps 0RF cough Coding Level of Care Code Tele Est Pt Level 2 (92025) Diagnoses Mild anemia D64.9 Hyperlipidemia E78.5 Bronchitis J40
== END ==
PROVIDERS: PCP Family Medicine; Visit Provider Family Medicine
DX: D64.9 Anemia, unspecified (principal); E78.5 Hyperlipidemia, unspecified; J40 Bronchitis, not specified as acute or chronic
CPT/HCPCS: 99212

== ENCOUNTER 2023-10-27 09:44 | Outpatient (REF) | payer OTHER, SELFPAY ==
[2023-10-27 11:33] LABS: MANUAL DIFF FLAG NO
[2023-10-27 11:40] LABS: Basophils Absolute Auto 0.1 X10*3/uL (0.0-0.2); Basophils Percent Auto 1.7 % (0-2); Eosinophils Absolute Auto 0.1 X10*3/uL (0.0-0.4); Eosinophils Percent Auto 2.6 % (0-4); Hematocrit 29.1 % (37.0-47.0); Hemoglobin 10.5 g/dl (12.0-16.0); Imm Gran Abs Auto 0.02 X10*3/uL (0.00-0.03); Imm Gran Pct Auto 0.4 % (0.0-0.4); Lymphocytes Absolute Auto 0.8 X10*3/uL (1.2-4.9); Lymphocytes Percent Auto 16.8 % (20-40); Mean Corpuscular HGB Conc 36.1 g/dl (31.0-35.0); Mean Corpuscular Hemoglobin 34.5 pg (27.0-33.0); Mean Corpuscular Volume 95.7 fL (80.0-98.0); Mean Platelet Volume 10.2 fL (9.4-12.3); Monocytes Absolute Auto 0.4 X10*3/uL (0.1-1.2); Monocytes Percent Auto 7.7 % (2-11); Neutrophils Absolute Auto 3.3 x10*3/uL (2.0-8.3); Neutrophils Percent Auto 70.8 % (45-73); Platelet Count 392 X10*3/uL (160-400); Red Blood Count 3.04 X10*6/uL (4.20-5.50); Red Cell Distribution Width 13.1 % (11.0-16.0); White Blood Count 4.7 X10*3/uL (4.8-10.8)
[2023-10-27 12:21] LABS: Alanine Aminotransferase 16 U/L (0-31); Albumin Level 4.5 g/dL (3.5-5.0); Alkaline Phosphatase 57 U/L (39-117); Anion Gap 15 (12-20); Aspartate Amino Transferase 27 U/L (5-31); Bilirubin Total 0.7 mg/dL (0.0-1.0); Blood Urea Nitrogen 8 mg/dL (9-16); Calcium 9.9 mg/dL (8.4-10.2); Carbon Dioxide 25 mmol/L (22-29); Chloride 92 mmol/L (96-108); Estimated Glomerular Filt Rate > 60; Glucose Random 74 mg/dL (60-115); Potassium 4.3 mmol/L (3.3-5.1); Sodium 128 mmol/L (135-145); Total Protein 7.3 g/dL (6.5-8.0)
== END 2023-10-27 09:45 | disposition home or self-care (01) ==
LOC: HO.WFDLDS 09:44
PROVIDERS: Visit Provider Family Medicine
DX: Z00.00 Encounter for general adult medical examination without abnormal findings (principal); E87.1 Hypo-osmolality and hyponatremia; D64.9 Anemia, unspecified
CPT/HCPCS: 36415; 80053; 85025

== ENCOUNTER 2023-11-02 09:38 | Outpatient (AMB) | payer OTHER, SELFPAY ==
[2023-11-02 09:47] VITALS: BP 130/60; PULSE 78; RESP 15; TEMP 36.1; O2SAT 99; BMI 23.4
--- NOTE | 2023-11-02 09:47 | A.OFFPC_ITS ---
Vital Signs 11/02/23 09:47 Height 5 ft Weight 120 lb BMI 23.4 BP 130/60 Blood Pressure Location Lt brachial Position Sitting Respiration 15 Pulse 78 Pulse Source Pulse Oximeter Temp 97 F Temp Source Temporal Artery Scan Pulse Oximetry (%) 99 Oxygen Delivery Method Room Air Intake Visit Reasons: f/u hypertension, labs Dairy Husbandman Required: No Accompanied by: Self / Same As Patient Allergies No Known Allergies Allergy (Verified 11/02/23 09:50) Medication List - Last Reconciled 11/02/23 by Candelario Ennis MD atorvastatin 10 mg PO DAILY benzonatate 100 mg PO BID PRN 5 days blood pressure monitor As directed cholecalciferol (vitamin D3) (Vitamin D3) 25 mcg PO DAILY fluticasone propionate 50 mcg/actuation 1 spray intranasal BEDTIME PRN lisinopril 10 mg PO DAILY loratadine 10 mg PO DAILY metoprolol succinate ER 100 mg PO DAILY 90 days Tobacco use date assessed: 09/08/23 Fall risk assessment: No Falls in past year Last assessed Fall Risk: 11/02/23 Dental Screening Dental Screen Date: 08/10/23 HPI f/u hypertension, labs HPI Details 63 y/o female presents to f/u hypertensi on, labs. Recent labs showed hyponatermia and mild anemia. Denies any bleeding/blood in urine. Labs were drawn 10/27/23. Reviewed labs with pt. Ongoing anemia. Ongoing hyponatremia though mildly improved from 126 to 128 mmol/L. Blood pressure today 130/60. She is on lisinopril 10mg daily. [facility] Medical History (Updated 11/02/23 @ 10:14 by Candelario Ennis MD) Dysplasia of cervix, low grade (VANI 1) Hyperlipidemia White coat syndrome with hypertension HTN (hypertension) Anxiety Depression Surgical History H/O colonoscopy Hx of cervical discectomy Hx of cataract extraction History of ankle surgery Hx of breast surgery Social History Household Members: None Housing: House Alcohol intake: current Alcohol intake frequency: holidays/special occasions only Patient Tobacco Use Status: Never used Tobacco e-Cigarette/Vaping Use: Never Used Second Hand Smoke Exposure: No service: No Current occupational status: retired Current occupational exposures/hazards: No Sexual orientation: Straight/Heterosexual Gender identity: Female Cognitive needs: No Hearing needs: No Vision needs: No Female Reproductive History Menstrual Age of Menarche: 10 Questionnaire Thrive Questionnaire Date Thrive assessed: 08/10/23 VIRGINIA-7 AMB Questionnaire VIRGINIA-7 Date VIRGINIA - 7 assessed: 08/10/23 Source: Developed by Drs. Leonel Meneses, Karin Allen, Calvin Borrero and colleagues, with an educational kathy from [employer]. Review of Systems Const Denies chills, Denies fatigue, Denies fever(s), Denies headache(s) and Denies weakness ENT Denies dizziness and Denies headache(s) Card Denies dyspnea Resp Denies cough, Denies dyspnea, Denies wheezing and Denies other (shortness of breath) Musc Denies numbness and Denies tingling Neuro Denies dizziness, Denies headache(s), Denies numbness, Denies tingling and Denies weakness Psych Denies anxiety and Denies depression Endo Denies fatigue Aller/Immun Denies wheezing Physical exam (Primary Care) Vital Signs: Last Vital Signs Temp 97 F 11/02/23 09:47 Pulse 78 11/02/23 09:47 Resp 15 11/02/23 09:47 BP 130/60 11/02/23 09:47 Pulse Ox 99 11/02/23 09:47 Oxygen Delivery Method Room Air 11/02/23 09:47 BMI result Body Mass Index 23.4 Tobacco/Smoking Status: Tobacco use Status Tobacco use date assessed 09/08/23 11/02/23 09:50 Patient Tobacco Use Status Never used Tobacco 11/02/23 09:50 e-Cigarette/Vaping Use Never Used 11/02/23 09:50 Thrive Assessment: Date of Thrive Assessment Date Thrive assessed 08/10/23 11/02/23 09:50 Const General: well developed; No acute distress Nutritional Appearance: well nourished Orientation/consciousness: patient oriented x3 HENMT Head: Yes normocephalic and Yes atraumatic Eyes General: appearance normal, both eyes and all related structures Pupils: Equal, round and reactive pupils present EOM: EOMs intact bilaterally Resp Effort & Inspection: normal respiratory effort Auscultation: clear to auscultation bilaterally Cardio Rate: regular rate Rhythm: regular rhythm Heart sounds: S1 normal heart sound present, S2 normal heart sound present, no gallops, no murmurs and no rubs Neuro General: patient oriented x3 and gait normal Cranial nerves: Yes Equal, round and reactive pupils present Psych Affect: normal affect Assessment and Plan Assessment & Plan (1) HTN (hypertension): Code(s): I10 - Essential (primary) hypertension Plan: Blood?pressure?is?controlled.??Goal?is?less?than?140/90 Continue?current?medication (2) Hyponatremia: Code(s): E87.1 - Hypo-osmolality and hyponatremia Plan: Mild?but?persistent?hyponatremia Will?follow (3) Mild anemia: Code(s): D64.9 - Anemia, unspecified Plan: Mild?but?persistent?and?slightly?worsened normocytic?anemia Will?repeat?labs?including?iron?panel,?reticulocyte?and?B12?levels Follow-up?with?patient?by?telemedicine (4) Bacteriuria: Code(s): R82.71 - Bacteriuria Plan: Patient?has?brought?in?urine?as?requested Had?bacteriuria?at?last?check Still?asymptomatic Will?repeat?urinalysis (5) Screening for osteoporosis: Code(s): Z13.820 - Encounter for screening for osteoporosis Plan: She?has?an?appointment?for?a?bone?density?test?in?April (6) Witnessed episode of apnea: Code(s): R06.81 - Apnea, not elsewhere classified Plan: She?has?an?appointment?with?sleep?medicine?in?January Orders: Orders Comprehensive Met. Panel Today D64.9 - Anemia, unspecified Complete Blood Count Auto Diff Today D64.9 - Anemia, unspecified, Z00.00 - Encounter for general adult medical examination without abnormal findings Vitamin B12 and Folate Today D64.9 - Anemia, unspecified, E53.8 - Deficiency of other specified B group vitamins IRON PROFILE Today D64.9 - Anemia, unspecified Reticulocyte Count Today D64.9 - Anemia, unspecified Ferritin Today D64.9 - Anemia, unspecified UA and rflx microscopic Today R82.71 - Bacteriuria Coding Level of Care Code Est Pt Level 4 (93315) Diagnoses HTN (hypertension) I10 Hyponatremia E87.1 Mild anemia D64.9 Bacteriuria R82.71 Screening for osteoporosis Z13.820 Witnessed episode of apnea R06.81
== END 2023-11-02 10:14 | disposition home or self-care (01) ==
PROVIDERS: PCP Family Medicine; Visit Provider Family Medicine
DX: I10 Essential (primary) hypertension (principal); E87.1 Hypo-osmolality and hyponatremia; D64.9 Anemia, unspecified; R82.71 Bacteriuria; Z13.820 Encounter for screening for osteoporosis; R06.81 Apnea, not elsewhere classified
CPT/HCPCS: 99214

== ENCOUNTER 2023-11-02 10:17 | Outpatient (REF) | payer OTHER, SELFPAY ==
[2023-11-02 11:13] LABS: MANUAL DIFF FLAG NO
[2023-11-02 11:24] LABS: Basophils Absolute Auto 0.1 X10*3/uL (0.0-0.2); Basophils Percent Auto 2.6 % (0-2); Eosinophils Absolute Auto 0.2 X10*3/uL (0.0-0.4); Eosinophils Percent Auto 3.6 % (0-4); Hematocrit 30.3 % (37.0-47.0); Hemoglobin 10.8 g/dl (12.0-16.0); Imm Gran Abs Auto 0.02 X10*3/uL (0.00-0.03); Imm Gran Pct Auto 0.4 % (0.0-0.4); Immature Retic Fraction 7.5 % (3.0-15.9); Lymphocytes Absolute Auto 0.9 X10*3/uL (1.2-4.9); Lymphocytes Percent Auto 16.4 % (20-40); Mean Corpuscular HGB Conc 35.6 g/dl (31.0-35.0); Mean Corpuscular Volume 98.1 fL (80.0-98.0); Mean Platelet Volume 10.1 fL (9.4-12.3); Monocytes Absolute Auto 0.5 X10*3/uL (0.1-1.2); Monocytes Percent Auto 9.3 % (2-11); Neutrophils Absolute Auto 3.6 x10*3/uL (2.0-8.3); Neutrophils Percent Auto 67.7 % (45-73); Platelet Count 403 X10*3/uL (160-400); Red Blood Count 3.09 X10*6/uL (4.20-5.50); Red Cell Distribution Width 13.1 % (11.0-16.0); Retic HGB Equivalent 38.4 pg (30.0-35.0); Reticulocyte Percent 1.7 % (0.5-1.8); Reticulocytes Absolute 0.053 X10*6/uL (0.026-0.095); White Blood Count 5.4 X10*3/uL (4.8-10.8)
[2023-11-02 12:13] LABS: Appearance Urine Cloudy; Color Urine Yellow; Glucose Urine UA Negative (Negative); Leukocyte Esterase Urine Trace (Negative); Nitrite Urine Negative (Negative); PH 7.5 (5.0-9.0); Specific Gravity - Urine 1.015 (1.005-1.025); UMIC TRIGGER UA YES; Urine Blood Negative (Negative); Urine Ketones Negative (Negative); Urine Protein Negative (Neg-Trace)
[2023-11-02 12:17] LABS: Alanine Aminotransferase 14 U/L (0-31); Albumin Level 4.6 g/dL (3.5-5.0); Alkaline Phosphatase 59 U/L (39-117); Anion Gap 15 (12-20); Aspartate Amino Transferase 26 U/L (5-31); Bilirubin Total 0.7 mg/dL (0.0-1.0); Blood Urea Nitrogen 5 mg/dL (9-16); Calcium 9.7 mg/dL (8.4-10.2); Carbon Dioxide 27 mmol/L (22-29); Chloride 92 mmol/L (96-108); Estimated Glomerular Filt Rate > 60; Ferritin 724 ng/mL (10-250); Glucose Random 89 mg/dL (60-115); Iron 117 mcg/dL (30-160); Percent Iron Saturation 51 % (15-50); Potassium 4.5 mmol/L (3.3-5.1); Sodium 129 mmol/L (135-145); Total Iron Binding Capacity 229 mcg/dL (228-428); Total Protein 7.4 g/dL (6.5-8.0); Unsaturated Iron Binding 112 ug/dL
[2023-11-02 13:23] LABS: Bacteria Urine 2+ (None Seen); Hyaline Casts Urine 0-2 /LPF (0-2); RBC Urine 0-2 /HPF (0-2); Squamous Epithelial Cell Urine >20 /HPF (0-2)
[2023-11-02 14:07] LABS: Folate 3.7 ng/mL (> or = 4.0); Vitamin B12 197 pg/mL (200-900)
== END 2023-11-02 10:18 | disposition home or self-care (01) ==
LOC: HO.WFDLDS 10:17
PROVIDERS: Visit Provider Family Medicine
DX: Z00.00 Encounter for general adult medical examination without abnormal findings (principal); D64.9 Anemia, unspecified; E53.8 Deficiency of other specified B group vitamins
CPT/HCPCS: 36415; 80053; 81001; 81003; 82607; 82728; 82746; 83540; 85025; 85045

== ENCOUNTER 2023-12-01 16:24 | Outpatient (AMB) | payer OTHER, SELFPAY ==
--- NOTE | 2023-12-01 16:20 | A.OFFPC_ITS ---
Intake Visit Reasons: f/u labs via telemedicine Intake Note: follow up labs Allergies No Known Allergies Allergy (Verified 12/01/23 16:21) Tobacco use date assessed: 09/08/23 Dental Screening Dental Screen Date: 08/10/23 HPI f/u labs via telemedicine HPI Details 63 y/o female [facility] Following up persistent normocytic anemia. Repeating urinalysis for bacteriuria. Labs drawn 11/02/23. Reviewed labs with pt. Ongoing mild anemia. 2+ urine bacteria seen. Ongoing hyponatremia. HPI Comments History of Present Illness Details Documentation assistance for Candelario Ennis MD, was provided by Reece Dougherty, Supervisor Mixing on 12/01/2023 at 5:39 PM EST. I, Dr. Ennis, have read, observed, and verified documentation. PFSH Medical History Dysplasia of cervix, low grade (VANI 1) Hyperlipidemia White coat syndrome with hypertension HTN (hypertension) Anxiety Depression Surgical History H/O colonoscopy Hx of cervical discectomy Hx of cataract extraction History of ankle surgery Hx of breast surgery Social History Household Members: None Housing: House Alcohol intake: current Alcohol intake frequency: holidays/special occasions only Patient Tobacco Use Status: Never used Tobacco e-Cigarette/Vaping Use: Never Used Second Hand Smoke Exposure: No service: No Current occupational status: retired Current occupational exposures/hazards: No Sexual orientation: Straight/Heterosexual Gender identity: Female Cognitive needs: No Hearing needs: No Vision needs: No Female Reproductive History Menstrual Age of Menarche: 10 Questionnaire Thrive Questionnaire Date Thrive assessed: 08/10/23 VIRGINIA-7 AMB Questionnaire VIRGINIA-7 Date VIRGINIA - 7 assessed: 08/10/23 Source: Developed by Drs. Leonel Meneses, Karin Allen, Calvin Borrero and colleagues, with an educational kathy from [employer]. Review of Systems Const Denies chills, Denies fatigue, Denies fever(s), Denies headache(s) and Denies weakness ENT Denies dizziness and Denies headache(s) Card Denies dyspnea Resp Denies cough, Denies dyspnea, Denies wheezing and Denies other (shortness of breath) Musc Denies numbness and Denies tingling Neuro Denies dizziness, Denies headache(s), Denies numbness, Denies tingling and Denies weakness Psych Denies anxiety and Denies depression Endo Denies fatigue Aller/Immun Denies wheezing Physical exam (Primary Care) Tobacco/Smoking Status: Tobacco use Status Tobacco use date assessed 09/08/23 12/01/23 16:22 Patient Tobacco Use Status Never used Tobacco 12/01/23 16:22 e-Cigarette/Vaping Use Never Used 12/01/23 16:22 Thrive Assessment: Date of Thrive Assessment Date Thrive assessed 08/10/23 12/01/23 16:22 Telehealth Telehealth Telehealth Platform: Telephone Location of provider rendering services: practice address Location of patient: address on file Patient Identification confirmed using: Name, : Yes Telehealth method: voice only Patient verbally consented to treatment: Yes Patient verbally consented to billing insurance company: Yes Patient informed of any privacy concerns related to visit: Yes Minutes spent on Phone/Video with Pt.: 7 Assessment and Plan Assessment & Plan (1) Mild anemia: Code(s): D64.9 - Anemia, unspecified Plan: Mild?persistent?anemia?now?mildly?macrocytic B12?level?is?low?and?I?will?send?her?a?script?for?this Week?recheck?in?a?few?months (2) Bacteriuria: Code(s): R82.71 - Bacteriuria Plan: Patient?again?has?bacteria?in?her?urine?with?white?blood?cell?activity Will?treat?empirically?with?amoxicillin Orders: Orders Basic Metabolic Panel Today D64.9 - Anemia, unspecified, Z00.00 - Encounter for general adult medical examination without abnormal findings UA and rflx microscopic Today R82.71 - Bacteriuria, Z00.00 - Encounter for general adult medical examination without abnormal findings Complete Blood Count Auto Diff Today D64.9 - Anemia, unspecified, Z00.00 - Encounter for general adult medical examination without abnormal findings IRON PROFILE Today D64.9 - Anemia, unspecified Vitamin B12 and Folate Today D64.9 - Anemia, unspecified, E53.8 - Deficiency of other specified B group vitamins Medications: New mecobalamin (vitamin B12) 1,000 mcg PO DAILY 90 days 90 tabs 2RF amoxicillin 500 mg PO Q12H 7 days 14 tabs 0RF Coding Level of Care Code Tele Est Pt Level 2 (25091) Diagnoses Mild anemia D64.9 Bacteriuria R82.71
== END 2023-12-01 17:05 ==
LOC: HO.HMGFM 16:24
PROVIDERS: PCP Family Medicine; Visit Provider Family Medicine
DX: D64.9 Anemia, unspecified (principal); R82.71 Bacteriuria
CPT/HCPCS: 99212

== ENCOUNTER 2024-03-06 10:36 | Outpatient (REF) | payer MEDICARE, OTHER, SELFPAY ==
[2024-03-06 14:24] LABS: MANUAL DIFF FLAG NO
[2024-03-06 14:28] LABS: Appearance Urine Turbid; Color Urine Yellow; Glucose Urine UA Negative (Negative); Leukocyte Esterase Urine Large (3+) (Negative); Nitrite Urine Negative (Negative); PH 8.5 (5.0-9.0); Specific Gravity - Urine 1.015 (1.005-1.025); UMIC TRIGGER UA YES; Urine Blood Negative (Negative); Urine Ketones Trace mg/dL (Negative); Urine Protein 30 (1+) mg/dL (Neg-Trace)
[2024-03-06 14:42] LABS: Basophils Absolute Auto 0.1 X10*3/uL (0.0-0.2); Basophils Percent Auto 2.6 % (0-2); Eosinophils Absolute Auto 0.2 X10*3/uL (0.0-0.4); Eosinophils Percent Auto 6.1 % (0-4); Hematocrit 30.1 % (37.0-47.0); Hemoglobin 10.3 g/dl (12.0-16.0); Lymphocytes Absolute Auto 0.7 X10*3/uL (1.2-4.9); Lymphocytes Percent Auto 20.8 % (20-40); Mean Corpuscular HGB Conc 34.2 g/dl (31.0-35.0); Mean Corpuscular Volume 99.3 fL (80.0-98.0); Mean Platelet Volume 10.3 fL (9.4-12.3); Monocytes Absolute Auto 0.5 X10*3/uL (0.1-1.2); Monocytes Percent Auto 14.9 % (2-11); Neutrophils Absolute Auto 1.9 x10*3/uL (2.0-8.3); Neutrophils Percent Auto 55.6 % (45-73); Platelet Count 348 X10*3/uL (160-400); Red Blood Count 3.03 X10*6/uL (4.20-5.50); Red Cell Distribution Width 13.4 % (11.0-16.0); White Blood Count 3.4 X10*3/uL (4.8-10.8)
[2024-03-06 14:42] LABS: Bacteria Urine 1+ (None Seen); Hyaline Casts Urine 0-2 /LPF (0-2); RBC Urine 0-2 /HPF (0-2); Squamous Epithelial Cell Urine >20 /HPF (0-2); WBC Urine 0-5 /HPF (0-5)
[2024-03-06 15:13] LABS: Anion Gap 13 (12-20); Blood Urea Nitrogen 7 mg/dL (9-16); Calcium 9.8 mg/dL (8.4-10.2); Carbon Dioxide 29 mmol/L (22-29); Chloride 97 mmol/L (96-108); Estimated Glomerular Filt Rate > 60; Glucose Random 101 mg/dL (60-115); Iron 94 mcg/dL (30-160); Percent Iron Saturation 42 % (15-50); Potassium 4.2 mmol/L (3.3-5.1); Sodium 135 mmol/L (135-145); Total Iron Binding Capacity 223 mcg/dL (228-428); Unsaturated Iron Binding 129 ug/dL
[2024-03-06 15:50] LABS: Folate 6.3 ng/mL (> or = 4.0); Vitamin B12 1056 pg/mL (200-900)
== END 2024-03-06 10:37 | disposition home or self-care (01) ==
LOC: HO.WFDLDS 10:36
PROVIDERS: Visit Provider Family Medicine
DX: Z00.00 Encounter for general adult medical examination without abnormal findings (principal); D64.9 Anemia, unspecified; E53.8 Deficiency of other specified B group vitamins
CPT/HCPCS: 36415; 80048; 81001; 82607; 82746; 83540; 85025

== ENCOUNTER 2024-03-12 09:22 | Outpatient (AMB) | payer OTHER, SELFPAY ==
--- NOTE | 2024-03-12 09:46 | MHC.PC.OV ---
Vital Signs 03/12/24 09:51 Height 5 ft Weight 117 lb 6 oz BMI 22.9 BP 130/70 Blood Pressure Location Lt brachial Position Sitting Respiration 14 Pulse 74 Pulse Source Pulse Oximeter Pulse Oximetry (%) 100 Oxygen Delivery Method Room Air Intake Visit Reasons: f/u anemia, labs Intake Note: f/u anemia and labs Allergies No Known Allergies Allergy (Verified 03/12/24 09:49) Medication List - Last Reconciled 03/12/24 by Candelario Ennis MD atorvastatin 10 mg PO DAILY benzonatate 100 mg PO BID PRN 5 days blood pressure monitor As directed cholecalciferol (vitamin D3) (Vitamin D3) 25 mcg PO DAILY fluticasone propionate 50 mcg/actuation 1 spray intranasal BEDTIME PRN lisinopril 10 mg PO DAILY loratadine 10 mg PO DAILY mecobalamin (vitamin B12) 1,000 mcg PO DAILY 90 days metoprolol succinate ER 100 mg PO DAILY 90 days Tobacco use date assessed: 09/08/23 Dental Screening Dental Screen Date: 08/10/23 HPI f/u anemia, labs HPI Details 64 y/o female presents to f/u anemia, labs. Labs drawn 03/06/24. Reviewed labs with pt. Ongoing anemia. Notes she had been given a betamethasone spray and a cream for her scalp irritation. [facility] Medical History Dysplasia of cervix, low grade (VANI 1) Hyperlipidemia White coat syndrome with hypertension HTN (hypertension) Anxiety Depression Surgical History H/O colonoscopy Hx of cervical discectomy Hx of cataract extraction History of ankle surgery Hx of breast surgery Social History Household Members: None Housing: House Alcohol intake: current Alcohol intake frequency: holidays/special occasions only Patient Tobacco Use Status: Never used Tobacco e-Cigarette/Vaping Use: Never Used Second Hand Smoke Exposure: No service: No Current occupational status: retired Current occupational exposures/hazards: No Sexual orientation: Straight/Heterosexual Gender identity: Female Cognitive needs: No Hearing needs: No Vision needs: No Female Reproductive History Menstrual Age of Menarche: 10 Questionnaire PHQ-9 Over the last 2 weeks, how often have you been bothered by any of the following problems? 1. Little interest or pleasure in doing things: not at all 2. Feeling down, depressed, or hopeless: not at all 3. Trouble falling or staying asleep, or sleeping too much: not at all 4. Feeling tired or having little energy: not at all 5. Poor appetite or overeating: not at all 6. Feeling bad about yourself - or that you are a failure or have let yourself or your family down: not at all 7. Trouble concentrating on things, such as reading the newspaper or watching television: not at all 8. Moving or speaking so slowly that other people could have noticed. Or the opposite - being so fidgety or restless that you have been moving around a lot more than usual: not at all 9. Thoughts that you would be better off or of hurting yourself in some way: not at all Total score: 0 Source: Developed by Drs. Leonel Meneses, Karin Allen, Calvin Borrero and colleagues, with an educational kathy from [employer]. Thrive Questionnaire Date Thrive assessed: 08/10/23 I am a: Patient What is your living situation today?: I have a steady place to live Within the past 12 months, did the food you bought not last and you didn't have the money to get more?: Never true Within the past 12 months, did you worry whether your food would run out before you got money to buy more?: Never true Do you have trouble paying for medicines?: No Do you have trouble getting transportation to medical appointments?: No Do you have trouble paying your heating and electricity bill?: No Do you have trouble taking care of your child, family member or friend?: No Do you have trouble with day-to-day activities such as bathing, preparing meals, shopping, managing finances, etc.?: No Are you currently unemployed and looking for a job?: No Are you interested in more education?: No Please select the resources that you would like help with: None Currently or been in a relationship where the following occur: No concerns reported THRIVE Score: 0 AUDIT C Alcohol Use Questionnaire (AUDIT-C) 1. How often do you have a drink containing alcohol?: 2-4 times a month 2. How many drinks containing alcohol do you have on a typical day when you are drinking?: 1 or 2 3. How often do you have six or more drinks on one occasion?: Never Total Score: 2 VIRGINIA-7 AMB Questionnaire VIRGINIA-7 Date VIRGINIA - 7 assessed: 08/10/23 Feeling nervous, anxious, or on edge: 0 = Not at all Not being able to stop or control worryin = Not at all Worrying too much about different things: 0 = Not at all Trouble relaxin = Not at all Being so restless that it is hard to sit still: 0 = Not at all Becoming easily annoyed or irritable: 0 = Not at all Feeling afraid as if something awful might happen: 0 = Not at all Total V[place]IA-7 score (0-4 normal; 5-9 mild; 10-14 moderate; 15-21 severe): 0 Source: Developed by Drs. Leonel Meneses, Karin Allen, Calvin Borrero and colleagues, with an educational kathy from [employer]. Review of Systems Const Denies chills, Denies fatigue, Denies fever(s), Denies headache(s) and Denies weakness ENT Denies dizziness and Denies headache(s) Card Denies dyspnea Resp Denies cough, Denies dyspnea, Denies wheezing and Denies other (shortness of breath) Musc Denies numbness and Denies tingling Neuro Denies dizziness, Denies headache(s), Denies numbness, Denies tingling and Denies weakness Psych Denies anxiety and Denies depression Endo Denies fatigue Aller/Immun Denies wheezing Physical exam (Primary Care) Vital Signs: Last Vital Signs Pulse 74 03/12/24 09:51 Resp 14 03/12/24 09:51 BP 130/70 03/12/24 09:51 Pulse Ox 100 03/12/24 09:51 Oxygen Delivery Method Room Air 03/12/24 09:51 BMI result Body Mass Index 22.9 Tobacco/Smoking Status: Tobacco use Status Tobacco use date assessed 09/08/23 03/12/24 09:48 Patient Tobacco Use Status Never used Tobacco 03/12/24 09:48 e-Cigarette/Vaping Use Never Used 03/12/24 09:48 PHQ-9: PHQ-9 Score PHQ-9: Total score 0 03/12/24 10:03 Thrive Assessment: Date of Thrive Assessment Date Thrive assessed 08/10/23 03/12/24 09:48 Currently or been in a relationship where the following occur: No concerns reported Const General: well developed; No acute distress Nutritional Appearance: well nourished Orientation/consciousness: patient oriented x3 [facility] Head: Yes normocephalic and Yes atraumatic Eyes General: appearance normal, both eyes and all related structures Pupils: Equal, round and reactive pupils present EOM: EOMs intact bilaterally Resp Effort & Inspection: normal respiratory effort Neuro General: patient oriented x3 and gait normal Cranial nerves: Yes Equal, round and reactive pupils present Psych Affect: normal affect Coding Level of Care Code Est Pt Level 3 (11803) Diagnoses Mild anemia D64.9 Scalp irritation R23.8 Assessment & Plan Assessment & Plan (1) Mild anemia: Code(s): D64.9 - Anemia, unspecified Category: Medical Plan: Mild?persistent?anemia Referred?to?Hematology She?can?schedule?a?appointment?with?me?in?a?few months?to?review (2) Scalp irritation: Code(s): R23.8 - Other skin changes Category: Medical Plan: Ongoing?scalp?irritation She?was?using?a?betamethasone?spray?which?is?working Will?give?her?a?script?for?this Medications: New betamethasone dipropionate 0.05% (Sernivo) 1 appl topical BID PRN 120 mL 2RF itching 30 days
[2024-03-12 09:51] VITALS: BP 130/70; PULSE 74; RESP 14; O2SAT 100; BMI 22.9
== END 2024-03-12 10:14 | disposition home or self-care (01) ==
PROVIDERS: PCP Family Medicine; Visit Provider Family Medicine
DX: D64.9 Anemia, unspecified (principal); R23.8 Other skin changes

== ENCOUNTER 2024-04-25 08:50 | Outpatient (REF) | payer MEDICARE, OTHER, SELFPAY ==
--- NOTE | ~2024-04-25 | MM_ITS ---
EXAMINATION: Dual-Energy X-ray Absorptiometry - Bone Density Study HISTORY: Estrogen deficiency TECHNIQUE: [employer] Dual energy absorptiometry (DEXA) of the lumbar spine, total left hip, and femoral neck was performed. COMPARISON: Comparison is made with the prior examination dated 12/05/2019. FINDINGS: The bone mineral density of the lumbar spine is 1.084 with a T-score of 0.8, and a Z-score of 1.2. This represents a BMD change of -9.2% compared to the prior exam. This is statistically significant. The bone mineral density of the left total hip is 0.729 with a T-score of -2.2, and a Z-score of 0.7. This represents BMD change of -6.8% compared to the prior exam. This is statistically significant. The bone mineral density of the left femoral neck is 0.703 with a T-score of -2.4, and a Z-score of 0.7. This represents BMD change of -9.5% compared to the prior exam. FRACTURE RISK: The FRAX index suggests a ten year probability of major osteoporotic fracture of 11.0%, and of hip fracture 2.4%. MM/XR DEXA axial skeleton IMPRESSION: Based on bone mineral density, and according to World Health Organization (WHO) criteria, the diagnosis is consistent with osteopenia. All bone density values are in grams per centimeter squared. At this facility, the least significant change in BMD with 95% confidence is 0.022 at the lumbar spine, 0.027 at the hip, and 0.023 at the distal 1/3 radius. Electronically signed by: Leonel Rodriguez MD 04/26/2024 03:08 PM [facility]
--- NOTE | ~2024-04-25 | MM_ITS ---
EXAMINATION: MM SCREENING DIGITAL BREAST TOMOSYNTHESIS, BILATERAL CLINICAL INFORMATION: Screening. Asymptomatic. COMPARISON: Mammography: Comparison is made with available priors TECHNIQUE: Digital breast mammography with tomosynthesis is performed in both the craniocaudal and mediolateral oblique views along with computer-aided detection (CAD). FINDINGS: The breasts are extremely dense, which lowers the sensitivity of mammography (ACR BI-RADS breast composition Category d). There are no significant masses, abnormal calcifications, or other abnormalities. MM/MM tomosynthesis screening BI IMPRESSION: No mammographic evidence of malignancy. ASSESSMENT: BI-RADS BI-RADS 1 - Negative RECOMMENDATION: Routine annual mammography screening. 1 year F/U This examination should not preclude the clinical evaluation of a suspicious palpable abnormality. This patient's information was entered into a reminder system with a target due date for their next mammogram. Electronically signed by: Allison Roberts DO 04/25/2024 10:07 AM [facility]
--- OUTSIDE RECORDS SUMMARY | 2024-04-25 08:53 | XMS_ITS | Data Portability ---
Author Organization [facility], [address] Address [address] [place] [address] Assessment No assessment recorded. Plan of Treatment Reminders Order Date Submit Date Provider Last Modified By Organization Details Last Modified Time Details Appointments None recorded. Lab None recorded. Referral dermatologi st referral - Right Ear lesion suspicious of Basal Cell CA 2022 023 [facility], [address], [address], [place], [address], 3 14:35:22 Procedures None recorded. Surgeries None recorded. Imaging None recorded. Medication Orders None recorded. Patient TargetsNo targets recorded. Patient InstructionsNo instructions recorded. 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 Medical Equipment None Reported. Allergies No known drug allergies Medications Name Sig Start Date Stop Date Status Note LastModified by Organization Details LastModified Time atorvastatin 10 mg tablet TAKE 1 TABLET BY MOUTH EVERY DAY active Not Available Not Available No t Available metoprolol succinate ER 100 mg tablet,exten ded release 24 hr TAKE 1 TABLET BY MOUTH DAILY active Not Available Not Available Not Available lisinopril 10 mg tablet TAKE 1 TABLET BY MOUTH DAILY active Not Available Not Available Not Available fluticasone propionate 50 mcg/actuatio n nasal spray,suspen dianna SPRAY 1 SPRAY INTRANASAL AT BEDTIME active Not Available Not Available N ot Available Vitamin D3 active Not Available Not Av ailable Not Available Vitals Date Recorded Body height Body mass index (BMI) Body weight Respiratory rate Oxygen saturation Oxygen saturation in Arterial blood by Pulse oximetry Heart rate Body temperature Systolic blood pressure Diastolic blood pressure Provider Name and Address Organization Details Last Updated DateTime 165.1 cm 20 kg/m2 14303.0 8 g 20 /min 100 % 100 % 94 /min 98.4 [degF] 148 mm[Hg] 83 mm[Hg] Karlie BARR [facility] 14:08:14 Social History Question Answer Notes LastModified by [employer] Details LastModified Time Tobacco Smoking Status Former Smoker Karlie sanchez PA [facility] 09/14/2022 14:06:39 What Is Your Level Of Alcohol Consumption? Occasional Information not available 09/14/2022 Have You Had Direct Contact, Or Contact During Intimacy, With Monkeypox Rash, Scabs, Or Body Fluids From A Person With Monkeypox? No Information not available 09/14/2022 Do You Use Any Illicit Or Recreational Drugs? No Information not available 09/14/2022 Have You Recently Traveled Abroad? No Information not available 09/14/2022 Do You Or Have You Ever Used Any Other Forms Of Tobacco Or Nicotine? No Information not available 09/14/2022 Sex: Unknown Functional Status None recorded. Mental Status None recorded. Family History Relationship Description Onset Age of this Age Resolved Age Notes LastModified by Organization Details LastModified Time Father No current problems or disability Not available 09/14 14:06:16 Mother No current problems or disability Not available 09/14 14:06:16 Medical History No medical history recorded. Gynecological History Statement/Question Response Is there any chance of ? No LMP N/A Obstetrics History GPAL:G 0 P 0 0 0 0 Immunizations Vaccine Type Date Status Note Provider Nam e and Address Organization Details Recorded Time Influenza, MDCK, quadrivalent, PF 2 completed Karlie [place] null, PA - [facility] 09/14/2022 14:05:29 Influenza, recombinant, quadrivalent, PF 0 completed Karlie [place] null, PA - [facility] 09/14/2022 14:05:29 zoster recombinant 1 completed Karlie Raoul null, PA - [facility] 09/14/2022 14:05:29 zoster recombinant 0 completed Karlie Raoul null, PA - [facility] 09/14/2022 14:05:29 COVID-19, mRNA, LNP-S, PF, 100 mcg/0.5mL dose or 50 mcg/0.25mL dose 2 completed Karlie Raoul null, PA - [facility] 09/14/2022 14:05:29 COVID-19, mRNA, LNP-S, PF, 100 mcg/0.5mL dose or 50 mcg/0.25mL dose 1 completed Karlie [place] null, PA - [facility] 09/14/2022 14:05:29 COVID-19, mRNA, LNP-S, PF, 30 mcg/0.3 mL dose 1 completed Karlie [place] null, PA - [facility] 09/14/2022 14:05:29 COVID-19, mRNA, LNP-S, PF, 30 mcg/0.3 mL dose 1 completed Karlie Raoul null, PA - [facility] 09/14/2022 14:05:29 Tdap 0 completed Karlie [place] null, PA - [facility] 09/14/2022 14:05:29 Influenza, split virus, trivalent, preservative 4 completed Karlie [place] null, PA - [facility] 09/14/2022 14:05:29 Influenza, split virus, trivalent, PF 7 completed Karlie Raoul null, PA - [facility] 09/14/2022 14:05:29 Td (adult), 5 Lf tetanus toxoid, preservative free, adsorbed 9 completed Karlie [place] null, PA - [facility] 09/14/2022 14:05:29 Influenza, split virus, quadrivalent, PF 9 completed Karlie Raoul null, PA - [facility] 09/14/2022 14:05:29 Influenza, split virus, quadrivalent, PF 6 completed Karlie [place] null, PA - [facility] 09/14/2022 14:05:29 Influenza, split virus, quadrivalent, PF 1 completed Karlie Raoul null, PA - [facility] 09/14/2022 14:05:29 Influenza, split virus, quadrivalent, PF 5 completed Karlie [place] null, PA - [facility] 09/14/2022 14:05:29 Past Encounters Encounter ID Performer Location Encounter Start Date Encounter Closed Date Diagnosis/Indication Diagnosis SNOMED-CT Code Diagnosis ICD10 Code Diagnosis Note [id number] [facility] [address] [place] [id number] 01/25/2017 10:16:14 01/25/2017 10:45:16 [id number] [facility] [address] [place] [id number] 12/15/2017 08:21:00 12/15/2017 09:14:19 [id number] Zhang [facility] [address] [place] [address] 09/14/2022 13:48:41 09/14/2022 14:34:15 Lesion of external ear 871183114 H61.899 Suspicious LKesion on the Pinna of left ear, needs Dermatolog y to rule out Basal Cell Ca.Advised to call Derm and PCP today Swelling o f toe of right foot [id number] R60.0 Not painful or warm. Mildly swollenNo interventi on necessary at this timeFollow up Podiatry if worsens Health Concerns Section Related Observation LastModified by Organization Detai ls LastModified Time None Recorded Concern Status LastModified by Organization Details LastModified Time None Recorded Advance Directives Directive None Recorded Payers Encounter Date Sequence Insurance Name Policy Number Policy Bartholomew Covered Member ID Bartholomew Member ID Guarantor Name 01/25/2017 1 [facility] [id number] 1 Ping Lucero Wall [id number] Ping Lucero Wall 12/15/2017 1 [facility] [id number] 1 Ping Lucero Wall [id number] Ping Lucero Wall 09/14/2022 1 [facility] [id number] 1 Pnig Lucero Wall [id number] Ping Lucero Wall Notes Date Note Type Note Provider Name and Address Organization Details Recorded Time 09/14/2022 text/html UC Rash/Skin LesionReported bypatient.Location:e ar Quality:redNotes:not iced by family memberAlso was told her right toe was infected because it looks swollen. There is no pain or warmth Zhang Dover MD [facility] [place], [address], [place] - [facility] 09/14/2022 15:46:09 OBGyn Episode No OBEpisode recorded.
== END 2024-04-25 08:51 | disposition home or self-care (01) ==
LOC: HO.MAMMO 08:50
PROVIDERS: PCP Family Medicine; Visit Provider Family Medicine
DX: M81.0 Age-related osteoporosis without current pathological fracture (principal); M85.80 Other specified disorders of bone density and structure, unspecified site; Z12.31 Encounter for screening mammogram for malignant neoplasm of breast
CPT/HCPCS: 77063; 77067; 77080

== ENCOUNTER → 2024-04-25 09:00 | Outpatient (BNV) | payer MEDICARE, OTHER, SELFPAY | PROVIDERS: PCP Family Medicine; Visit Provider Internal Medicine | DX: Z12.31 Encounter for screening mammogram for malignant neoplasm of breast (principal) | CPT/HCPCS: 77063; 77067 ==

== ENCOUNTER 2024-06-27 09:41 | Outpatient (AMB) | payer MEDICARE, OTHER, SELFPAY ==
[2024-06-27 09:43] VITALS: BP 160/100; PULSE 80; O2SAT 99; BMI 23.0
--- NOTE | 2024-06-27 09:43 | A.OFFVIS_ITS ---
Vital Signs 06/27/24 09:43 Height 5 ft Weight 118 lb BMI 23.0 BP 160/100 H Blood Pressure Location Lt brachial Position Sitting Pulse 80 Pulse Source Pulse Oximeter Pulse Oximetry (%) 99 Oxygen Delivery Method Room Air Intake Visit Reasons: INP-Apnea Intake Note: Patient presents for internal referral for sleep apnea. Patient referred by Candelario Ennis Cooker Pie Filling Required: No Accompanied by: Self / Same As Patient Allergies No Known Allergies Allergy (Verified 03/12/24 09:49) HPI Comments Details: 64 year old female is referred for sleep evaluation by PCP. She goes to sleep at varying times 10pm and wakes up by 8am, with 2-3 bathroom breaks, she limits fluid. She snores like a freight train and wakes others up in the room and feels tired most days. Denies morning headaches. Her blood pressure is elevated today she has white coat syndrome, it is normal at home. Denies RLS. 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 Memory is stable, mood and diet is stable. She takes an edible once in a while to help relax, and at times will use Melatonin 5mg PO PRN for sleep. She does not smoke or drink alcohol. [facility] Medical History Dysplasia of cervix, low grade (VANI 1) Hyperlipidemia White coat syndrome with hypertension HTN (hypertension) Anxiety Depression Surgical History H/O colonoscopy Hx of cervical discectomy Hx of cataract extraction History of ankle surgery Hx of breast surgery Social History Household Members: None Housing: House Alcohol intake: current Alcohol intake frequency: holidays/special occasions only Patient Tobacco Use Status: Never used Tobacco e-Cigarette/Vaping Use: Never Used Second Hand Smoke Exposure: No service: No Current occupational status: retired Current occupational exposures/hazards: No Sexual orientation: Straight/Heterosexual Gender identity: Female Cognitive needs: No Hearing needs: No Vision needs: No Female Reproductive History Menstrual Age of Menarche: 10 Physical Exam Vital Signs: Last Vital Signs Pulse 80 06/27/24 09:43 BP 160/100 H 06/27/24 09:43 Pulse Ox 99 06/27/24 09:43 Oxygen Delivery Method Room Air 06/27/24 09:43 BMI result Body Mass Index 23.0 She has white coat syndrome. Const General: cooperative, comfortable and no acute distress Orientation/consciousness: patient oriented x3 HEENT Face and sinus: Yes normal facial exam and Yes face symmetric Teeth and gingiva: other ([place] score of 4) Eyes Pupils: Equal, round and reactive pupils present Neck Neck: Yes full ROM and Yes supple Resp Effort & Inspection: normal respiratory effort and able to speak in complete sentences Neuro General: patient oriented x3 and moves all extremities Cranial nerves: Yes CN's II-XII intact bilaterally, Yes Facial sensation intact/muscles of mastication intact, Yes Equal, round and reactive pupils present, Yes Normal accommodation reflex present, Yes Bilaterally intact EOM present, Yes Nystagmus not present, Yes Normal facial strength present, Yes Midline tongue present, Yes Ability to bilaterally rotate head present and Yes Ability to bilaterally elevate shoulders present Cognition (Neuro): normal cognition Gait exam (Neuro): Antalgic gait present Motor exam (neuro): 5/5 motor strength present throughout and Normal motor muscle tone present throughout Deep tendon reflexes (DTR's): Right triceps reflex intensity grade: 2+, Left triceps reflex intensity grade: 2+, Rt Biceps (C5, C6): 2+, Left biceps reflex intensity grade: 2+, Right brachioradialis reflex intensity grade: 2+, Left brachioradialis reflex intensity grade: 2+, Right patellar reflex intensity gr clementina: 3+ and Left patellar reflex intensity grade: 3+ Results Reviewed Results Reviewed: Labs labs b12 elevated Iron needs checked. Assessment & Plan Assessment & Plan (1) Fatigue: Code(s): R53.83 - Other fatigue Category: Medical Plan HST for snoring Labs for fatigue, she has anemia. Sleep Hygiene is provided Orders: Orders Complete Blood Count no Diff Today R53.83 - Other fatigue Hemoglobin A1c Today R53.83 - Other fatigue Ferritin Today R53.83 - Other fatigue IRON PROFILE Today G47.9 - Sleep disorder, unspecified, R53.83 - Other fatigue Homocysteine Today R53.83 - Other fatigue Vitamin D 25-OH Total Today R53.83 - Other fatigue RT home sleep study Today G47.19 - Other hypersomnia Comprehensive Met. Panel Today R53.83 - Other fatigue Methylmalonic Acid Today G47.9 - Sleep disorder, unspecified, R53.83 - Other fatigue Vitamin B12 and Folate Today R53.83 - Other fatigue TSH reflex Free T4 Today F09 - Unspecified mental disorder due to known physiological condition Patient Instructions: Iron is low, Anemia will check labs B12 is elevated Sleep hygiene provided, sleep in a dark, cool room temperatures should be 68 degrees and no devices in bed. You may read a book or magazine, limit fluids 2-4 hours from bedtime. F/U in 3 months after HST. Coding Level of Care Code New Pt Level 4 (26737) Diagnoses Fatigue R53.83 Time Spent (min) 20 Comment Evaluation Sleep Questionnaire Difficulty falling asleep: Yes Difficulty staying asleep?: Yes Number of arousals: 2-3 Snoring: Yes Witnessed apneas: No Gasping arousals: No Nocturia: Yes GERD: No Vivid dreams: No Acting out dreams: No Abnormal behavior in sleep: No Abnormal movements in sleep: No Morning headaches: No Excessive daytime sleepiness: No Daytime naps: No Restless legs: No Hallucinations: No Sleep paralysis: No Drop attacks: No Sleep Study: No CPAP: No
--- OUTSIDE RECORDS SUMMARY | 2024-06-27 10:42 | XMS_ITS | Data Portability ---
Author Organization [facility], [address] Address [address] [place] [address] Assessment No assessment recorded. Plan of Treatment Reminders Order Date Submit Date Provider Last Modified By Organization Details Last Modified Time Details Appointments None recorded. Lab None recorded. Referral dermatologi st referral - Right Ear lesion suspicious of Basal Cell CA 2022 023 [facility], [address], [address], [place], [address], 3 14:35:22 Procedures None recorded. Surgeries None recorded. Imaging None recorded. Medication Orders None recorded. Patient TargetsNo targets recorded. Patient InstructionsNo instructions recorded. 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 Referral for L esion of external ear Right Ear lesion suspicious Basal Cell CA Right Ear lesion suspicious of Basal Cell CA Referring Physician: Zhang Dover, Urgent Care, Encounter Date: 09/14/2022 Problems Name Problem SNOMED Code Status Onset Date Resolution Date Notes Provider Name and Address Organization Details Recorded Time Hypertensive disorder 22013607 Active 2022 [facility] 3 14:06:09 Hypercholestero lemia 53658688 Active 2022 [facility] 3 14:06:14 [...] height Body mass index (BMI) Body weight Pain severity - 0-10 verbal numeric rating [Score] - Reported Respiratory rate Oxygen saturation Oxygen saturation in Arterial blood by Pulse oximetry Heart rate Body temperature Systolic blood pressure Diastolic blood pressure Provider Name and Address Organization Details Last Updated DateTime 165.1 cm 20 kg/m2 99016.0 8 g 0 20 /min 100 % 100 % 94 /min 98.4 [degF] 148 mm[Hg] 83 mm[Hg] Karlie Silveira [employer] 14:08:14 Social History Question Answer Notes LastModified by [employer] Details LastModified Time Tobacco Smoking Status Former Smoker Karlie sanchez PA [facility] 09/14/2022 14:06:39 What Is Your Level [...] Influenza, MDCK, quadrivalent, PF 2 completed Karlie Saunemin null, PA - [facility] 09/14/2022 14:05:29 Influenza, recombinant, quadrivalent, PF 0 completed Karlie Raoul null, PA - [facility] 09/14/2022 14:05:29 zoster recombinant 1 completed Karlie Raoul null, PA - [facility] 09/14/2022 14:05:29 zoster recombinant 0 completed Karlie Saunemin null, PA - [facility] 09/14/2022 14:05:29 COVID-19, mRNA, LNP-S, PF, 100 mcg/0.5mL dose or 50 mcg/0.25mL dose 2 completed Karlie Raoul null, PA - [facility] 09/14/2022 14:05:29 COVID-19, mRNA, LNP-S, PF, 100 mcg/0.5mL dose or 50 mcg/0.25mL dose 1 completed Karlie Saunemin null, PA - [facility] 09/14/2022 14:05:29 COVID-19, mRNA, LNP-S, PF, 30 mcg/0.3 mL dose 1 completed Karlie Saunemin null, PA - [facility] 09/14/2022 14:05:29 COVID-19, mRNA, LNP-S, PF, 30 mcg/0.3 mL dose 1 completed Karlie Raoul null, PA - [facility] 09/14/2022 14:05:29 Tdap 0 completed Karlie Raoul null, PA - [facility] 09/14/2022 14:05:29 Influenza, split virus, trivalent, preservative 4 completed Karlie Saunemin null, PA - [facility] 09/14/2022 14:05:29 Influenza, split virus, trivalent, PF 7 completed Karlie Raoul null, PA - [facility] 09/14/2022 14:05:29 Td (adult), 5 Lf tetanus toxoid, preservative free, adsorbed 9 completed Karlie Aroul null, PA - [facility] 09/14/2022 14:05:29 Influenza, split virus, quadrivalent, PF 9 completed Karlie Raoul null, PA - [facility] 09/14/2022 14:05:29 Influenza, split virus, quadrivalent, PF 6 completed Karlie Raoul null, PA - [facility] 09/14/2022 14:05:29 Influenza, split virus, quadrivalent, PF 1 completed Karlie Saunemin null, PA - [facility] 09/14/2022 14:05:29 Influenza, split virus, quadrivalent, PF 5 completed Karlie Raoul null, PA - [facility] 09/14/2022 14:05:29 Past Encounters Encounter ID Performer Location Encounter Start Date Encounter Closed Date Diagnosis/Indication Diagnosis SNOMED-CT Code Diagnosis ICD10 Code Diagnosis Note [id number] [facility] [address] [place] [address] 01/25/2017 10:16:14 01/25/2017 10:45:16 [id number] [address] [address] 12/15/2017 08:21:00 12/15/2017 09:14:19 [id number] Zhang Dover [facility] [address] [address] [place] [address] 09/14/2022 13:48:41 09/14/2022 14:34:15 Lesion of external ear 885633846 H61.899 Suspicious LKesion on the Pinna of left ear, needs Dermatolog y to rule out Basal Cell Ca.Advised to call Derm and PCP today Swelling o f toe of right foot [id number] 6632450 R60.0 Not painful or warm. Mildly swollenNo [...] Bartholomew Member ID Guarantor Name 01/25/[address] [facility] [id number] Ping Lucero Wall [id number] Ping Lucero Duke 12/15/[address] [facility] [id number] Ping Lucero Wall [id number] Ping Lucero Duke 09/14/[address] [facility] [id number] Ping Lucero Wall [id number] Ping Lucero Duke Notes Date Note Type Note Provider Name and Address Organization Details Recorded Time 09/14/2022 text/html UC Rash/Skin LesionReported bypatient.Location:e al Quality:redNotes:not iced by family memberAlso was told her right toe was infected because it looks swollen. There is no pain or warmth Zhang Dover MD [address] [place], [address], [place] - [facility] 09/14/2022 15:46:09 OBGyn Episode No OBEpisode recorded.
--- OUTSIDE RECORDS SUMMARY | 2024-06-27 10:42 | XMS_ITS | Clinical Summary ---
Author Organization [facility] [place] [address] Care Team Providers Care Senior Contracts Manager Name Role Phone Roland Tarango MD Primary Care Provider [phone] Social History Tobacco Use Types Packs/Day Years Used Date Smoking Tobacco: Never Assessed Comments Unknown Sex and Gender Information Value Date Recorded Sex Assigned at Not on file Legal Sex Female 6:59 AM EST Gender Identity Not on file Sexual Orientation Not on file Plan of Treatment Health Maintenance Due Date Last Done Comments Breast Cancer Screening 1959 DTaP,Tdap,and Td Vaccines (1 - Tdap) 1978 Cervical Cancer Screening: P ap Smear 02/15/1980 Pneumococcal Vaccine: 50+ Ye ars (1 of 1 - PCV) 2009 Zoster Vaccines (1 of 2) 2009 COVID-19 Vaccine ( - 2023-2 5 season) 2023 Influenza Vaccine (#1) 2023 RSV Immunization Patients 60 + Years Old (1 - 1-dose 75+ series) 2034 HIB Vaccines Aged Out No longer eligi ble based on patient's age to complete this topic HPV Vaccines Aged Out No longer eligi ble based on patient's age to complete this topic Hepatitis A Vaccines Aged Out No long er eligible based on patient's age to complete this topic Hepatitis B Vaccines Aged Out No long er eligible based on patient's age to complete this topic IPV Vaccines Aged Out No longer eligi ble based on patient's age to complete this topic MMR Vaccines Aged Out No longer eligi ble based on patient's age to complete this topic Meningococcal ACWY Vaccine Aged Out N o longer eligible based on patient's age to complete this topic Meningococcal B Vacine Aged Out No lo nger eligible based on patient's age to complete this topic Pneumococcal Vaccine: Pediat rics (0 to 5 Years) and At-Risk Patients (6 to 64 Years) Aged Out No longer eligible b ased on patient's age to complete this topic RSV Immunization Patients Un scar 20 months Aged Out No longer eligible b ased on patient's age to complete this topic Varicella Vaccines Aged Out No longer eligible based on patient's age to complete this topic Care Teams Senior Contracts Manager Relationship Specialty Start Date End Date Roland Tarango MD [address] [place] [phone] PCP - General Internal Medicine 02/08/17
== END 2024-06-27 10:23 | disposition home or self-care (01) ==
LOC: HO.HSMS 09:42
PROVIDERS: PCP Family Medicine; Visit Provider Physician Assistant Medical
DX: R53.83 Other fatigue (principal)
CPT/HCPCS: 99204

== ENCOUNTER → 2024-06-27 09:41 | Outpatient (BNVA) | payer MEDICARE, OTHER, SELFPAY | PROVIDERS: PCP Family Medicine; Visit Provider Physician Assistant Medical | DX: R53.83 Other fatigue (principal) | CPT/HCPCS: 99202 ==

== ENCOUNTER 2024-07-03 08:45 | Outpatient (REF) | payer MEDICARE, OTHER, SELFPAY ==
[2024-07-11 13:03] LABS: HPV Genotype 16 Negative (Negative); HPV Genotype 18 Negative (Negative); HPV High Risk Negative (Negative)
== END 2024-07-03 08:46 | disposition home or self-care (01) ==
LOC: HO.LNP 08:45
PROVIDERS: PCP Family Medicine; Visit Provider Obstetrics & Gynecology
DX: Z01.419 Encounter for gynecological examination (general) (routine) without abnormal findings (principal); Z87.410 Personal history of cervical dysplasia
CPT/HCPCS: 87626; 88175; G0101; Q0091

== ENCOUNTER 2024-07-03 08:45 | Outpatient (AMB) | payer MEDICARE, OTHER, SELFPAY ==
--- NOTE | 2024-07-03 08:58 | A.OFFVIS_ITS ---
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 No complaints. Last Pap/HPV was in 05/10 was negative Last Mammogram was in 05/12 was BI-RADS 1 Last Colonoscopy was done in 05/08, the recommendation was to repeat in 10 years Last DEXA scan was done in 05/12, the patient is in the low risk category with no evidence of osteoporosis PFSH Medical History Dysplasia of cervix, low grade (VANI 1) Hyperlipidemia White coat syndrome with hypertension HTN (hypertension) Anxiety Depression Surgical History H/O colonoscopy Hx of cervical discectomy Hx of cataract extraction History of ankle surgery Hx of breast surgery Social History Household Members: None Housing: House Alcohol intake: current Alcohol intake frequency: holidays/special occasions only Patient Tobacco Use Status: Never used Tobacco e-Cigarette/Vaping Use: Never Used Second Hand Smoke Exposure: No service: No Current occupational status: retired Current occupational exposures/hazards: No Sexual orientation: Straight/Heterosexual Gender identity: Female Cognitive needs: No Hearing needs: No Vision needs: No Female Reproductive History Menstrual Age of Menarche: 10 Total pregnancies: 3 Full term: 2 Ab induced: 1 Date of last pap smear: 05/18/22 (negative hpv, negative pap smear) Date of Mammogram: 04/25/24 (bi rad 1) Date of last Bone Density Screenin04/25/24 Review of Systems Const All systems reviewed & are unremarkable except as noted in HPI and below Card Reports as per HPI Resp Reports as per HPI GI Reports as per HPI and Reports no additional complaints Reports as per HPI Physical Exam Vital Signs: Last Vital Signs BP 136/68 07/03/24 09:01 BMI result Body Mass Index 22.8 Const General: cooperative, healthy appearing and comfortable Chest Chest palpation & inspection: normal inspection of the chest and normal palpation of entire chest wall Breast/axilla inspection: normal inspection of the breasts and normal inspection of the axillae Breast/axilla palpation: normal palpation of the breasts, normal palpation of the axillae and no axillary lymphadenopathy Resp Effort & Inspection: normal respiratory effort Auscultation: clear to auscultation bilaterally Percussion: percussion normal Cardio Palpation: normal PMI Rate: regular rate Rhythm: regular rhythm Heart sounds: no murmurs and no rubs Peripheral pulses: Peripheral pulses 2+ throughout GI Inspection: Yes normal to inspection Palpation (GI): Soft to palpation, nontender, no guarding, not rigid and No hepatosplenomegaly present Percussion: Yes normal to percussion Auscultation: normal bowel sounds Rectal Exam - Female: deferred General: Yes bladder normal to palpation External Female Exam: No lesion Speculum Exam - Vagina: normal appearance of the vagina, normal palpation, normal vaginal discharge and not erythematous Speculum Exam - Cervix: normal appearance of the cervix and normal palpation Bimanual exam- vagina & uterus: normal bimanual exam, normal palpation, uterine size normal, bladder normal to palpation, consistency normal and normal palpation Bimanual Exam- Adnexa, other: normal adnexae, no masses and no tenderness Assessment & Plan Assessment & Plan (1) Well woman exam: Comment: VANI 1 in 2021 followed by negative co testing in 2022 Code(s): Z01.419 - Encounter for gynecological examination (general) (routine) without abnormal findings Category: Medical Plan: Co testing done since co testing in 2022 was negative preceded by VANI 1 in 2021 Counseled the patient about the recommended dietary allowance of 1200 mg of Calcium & 800 IU of vitamin D. Instructions given the patient to schedule her next screening Mammogram in 05/13. The patient was instructed to perform monthly self-breast exams and to schedule an annual exam in a year; All questions answered and the patient verbalized understanding. Coding Level of Care Code Est Pt Prev Care >65y(02563) Diagnoses Well woman exam Z01.419
[2024-07-03 09:01] VITALS: BP 136/68; BMI 22.8
== END 2024-07-03 09:21 | disposition home or self-care (01) ==
LOC: HO.HWS 08:45
PROVIDERS: PCP Family Medicine; Visit Provider Obstetrics & Gynecology
DX: Z01.419 Encounter for gynecological examination (general) (routine) without abnormal findings (principal)
CPT/HCPCS: G0101; Q0091

== ENCOUNTER 2024-08-02 11:05 | Outpatient (REF) | payer MEDICARE, OTHER, SELFPAY ==
--- OUTSIDE RECORDS SUMMARY | 2024-08-02 13:37 | XMS_ITS | Clinical Summary ---
Author Organization [facility] [place] [address] Care Team Providers Care Parts Identification Technician Name Role Phone Roland Tarango MD Primary Care Provider [phone] Social History Tobacco Use Types Packs/Day Years [...] - 2023-2 5 season) 2023 Influenza Vaccine (Season Ended) 2024 RSV Immunization Adult Patie nts (1 - 1-dose 75+ series) 2034 HIB [...] age to complete this topic Meningococcal B Vaccine Aged Out No l onger eligible based on patient's age to complete [...] age to complete this topic Care Teams Parts Identification Technician Relationship Specialty Start Date End Date Roland Tarango MD [address] [place] [phone] PCP - General Internal Medicine 02/08/17
--- OUTSIDE RECORDS SUMMARY | 2024-08-02 13:37 | XMS_ITS | Data Portability ---
Author Organization [facility], [address] Address [address] [place] [address] Assessment No assessment recorded. Plan of Treatment Reminders Order Date Submit Date Provider Last Modified By Organization Details Last Modified Time Details Appointments None recorded. Lab None recorded. Referral dermatologi st referral - Right Ear lesion suspicious of Basal Cell CA 2022 023 [facility], [address], [place], [address], 3 14:35:22 Procedures None recorded. Surgeries None recorded. Imaging None recorded. Medication Orders None recorded. Patient TargetsNo targets recorded. Patient InstructionsNo instructions recorded. Reason for Referral Homeopathic Doctor Referral for L esion of external ear Right Ear lesion suspicious Basal Cell CA Right Ear lesion suspicious of Basal Cell CA Referring Physician: Zhang Dover, Urgent Care, Encounter Date: 09/14/2022 Problems Name Problem SNOMED Code Status Onset Date Resolution Date Notes Provider Name and Address Organization Details Recorded Time Hypertensive disorder 45297905 Active 2022 [facility] 3 14:06:09 Hypercholestero lemia 76781082 Active 2022 [facility] 14:06:14 [...] Last Updated DateTime 165.1 cm 20 kg/m2 14043.0 8 g 0 20 /min 100 % 100 % 94 /min 98.4 [degF] 148 mm[Hg] 83 mm[Hg] Karlie Silveira [employer] 14:08:14 Social History Question Answer Notes LastModified by [employer] Details LastModified Time Tobacco Smoking Status Former Smoker Karlie sanchez PA [facility] 09/14/2022 14:06:39 What Is Your Level [...] Influenza, MDCK, quadrivalent, PF 2 completed Karlie Jesup null, PA - [facility] 09/14/2022 14:05:29 Influenza, recombinant, quadrivalent, PF 0 completed Karlie Raoul null, PA - [facility] 09/14/2022 14:05:29 zoster recombinant 1 completed Karlie Raoul null, PA - [facility] 09/14/2022 14:05:29 zoster recombinant 0 completed Karlie Jesup null, PA - [facility] 09/14/2022 14:05:29 COVID-19, mRNA, LNP-S, PF, 100 mcg/0.5mL dose or 50 mcg/0.25mL dose 2 completed Karlie Raoul null, PA - [facility] 09/14/2022 14:05:29 COVID-19, mRNA, LNP-S, PF, 100 mcg/0.5mL dose or 50 mcg/0.25mL dose 1 completed Karlie Jesup null, PA - [facility] 09/14/2022 14:05:29 COVID-19, mRNA, LNP-S, PF, 30 mcg/0.3 mL dose 1 completed Karlie Jesup null, PA - [facility] 09/14/2022 14:05:29 COVID-19, mRNA, LNP-S, PF, 30 mcg/0.3 mL dose 1 completed Karlie Raoul null, PA - [facility] 09/14/2022 14:05:29 Tdap 0 completed Karlie Raoul null, PA - [facility] 09/14/2022 14:05:29 Influenza, split virus, trivalent, preservative 4 completed Karlie Jesup null, PA - [facility] 09/14/2022 14:05:29 Influenza, split virus, trivalent, PF 7 completed Karlie Raoul null, PA - [facility] 09/14/2022 14:05:29 Td (adult), 5 Lf tetanus toxoid, preservative free, adsorbed 9 completed Karlie Raoul null, PA - [facility] 09/14/2022 14:05:29 Influenza, split virus, quadrivalent, PF 9 completed Karlie Raoul null, PA - [facility] 09/14/2022 14:05:29 Influenza, split virus, quadrivalent, PF 6 completed Karlie Raoul null, PA - [facility] 09/14/2022 14:05:29 Influenza, split virus, quadrivalent, PF 1 completed Karlie Jesup null, PA - [facility] 09/14/2022 14:05:29 Influenza, split virus, quadrivalent, PF 5 completed Karlie Raoul null, PA - [facility] 09/14/2022 14:05:29 Past Encounters Encounter ID Performer Location Encounter Start Date Encounter Closed Date Diagnosis/Indication Diagnosis SNOMED-CT Code Diagnosis ICD10 Code Diagnosis Note [id number] [facility] [address] [place] [address] 01/25/2017 10:16:14 01/25/2017 10:45:16 [id number] [address] [address] 12/15/2017 08:21:00 12/15/2017 09:14:19 [id number] Zhang [facility] [address] [place] [address] 09/14/2022 13:48:41 09/14/2022 14:34:15 Lesion of external ear 607890640 H61.899 Suspicious LKesion on the Pinna of left ear, needs Dermatolog y to rule out Basal Cell Ca.Advised to call Derm and PCP today Swelling o f toe of right foot [id number] R60.0 Not painful or warm. Mildly swollenNo [...] Bartholomew Member ID Guarantor Name 01/25/2017 1 [facility] [id number] Ping Lucero Wall [id number] Ping Lucero Duke 12/15/2017 1 [facility] [id number] Ping Lucero Wall [id number] Ping Lucero Duke 09/14/2022 1 [facility] [id number] Ping Lucero Wall [id number] Ping Lucero Duke Notes Date Note Type Note Provider Name and Address Organization Details Recorded Time 09/14/2022 text/html UC Rash/Skin LesionReported bypatient.Location:e co Quality:redNotes:not iced by family memberAlso was told her right toe was infected because it looks swollen. There is no pain or warmth Zhang Dover MD [address] [place], [address], [place] - [facility] 09/14/2022 15:46:09 OBGyn Episode No OBEpisode recorded.
[2024-08-02 14:26] LABS: Hematocrit 29.8 % (37.0-47.0); Hemoglobin 10.5 g/dl (12.0-16.0); Mean Corpuscular HGB Conc 35.2 g/dl (31.0-35.0); Mean Corpuscular Volume 96.4 fL (80.0-98.0); Mean Platelet Volume 10.8 fL (9.4-12.3); Platelet Count 316 X10*3/uL (160-400); Red Blood Count 3.09 X10*6/uL (4.20-5.50); Red Cell Distribution Width 12.7 % (11.0-16.0); White Blood Count 4.4 X10*3/uL (4.8-10.8)
[2024-08-02 14:37] LABS: Estimated Average Glucose 103 mg/dL; Hemoglobin A1C 92.4464 umol/L; Hemoglobin A1c % 5.2 % (<6.0); Total Hemoglobin (HGBA1C) 2794.7511 umol/L
[2024-08-02 14:53] LABS: Alanine Aminotransferase 15 U/L (0-31); Albumin Level 4.3 g/dL (3.5-5.0); Anion Gap 14 (12-20); Aspartate Amino Transferase 25 U/L (5-31); Bilirubin Total 0.7 mg/dL (0.0-1.0); Blood Urea Nitrogen 11 mg/dL (9-16); Calcium 9.5 mg/dL (8.4-10.2); Carbon Dioxide 27 mmol/L (22-29); Chloride 95 mmol/L (96-108); Estimated Glomerular Filt Rate > 60; Glucose Random 81 mg/dL (60-115); Iron 136 mcg/dL (30-160); Percent Iron Saturation 56 % (15-50); Potassium 4.6 mmol/L (3.3-5.1); Sodium 131 mmol/L (135-145); Total Iron Binding Capacity 243 mcg/dL (228-428); Total Protein 7.3 g/dL (6.5-8.0); Unsaturated Iron Binding 107 ug/dL
[2024-08-02 15:01] LABS: Alkaline Phosphatase 56 U/L (39-117); Ferritin 462 ng/mL (10-250); TSH reflex Free T4 1.69 uIU/mL (0.32-4.0); Vitamin D 25-OH Total 58.9 ng/mL (>30)
[2024-08-02 15:11] LABS: Folate 5.6 ng/mL (> or = 4.0); Vitamin B12 619 pg/mL (200-900)
[2024-08-06 09:28] LABS: Methylmalonic Acid 101 nmol/L (69-390)
== END 2024-08-02 11:06 | disposition home or self-care (01) ==
LOC: HO.WFDLDS 11:05
PROVIDERS: Visit Provider Physician Assistant Medical
DX: G47.9 Sleep disorder, unspecified (principal); R53.83 Other fatigue; F09 Unspecified mental disorder due to known physiological condition; Z13.1 Encounter for screening for diabetes mellitus
CPT/HCPCS: 36415; 80053; 82306; 82607; 82728; 82746; 83036; 83540; 83921; 84443; 85027

== ENCOUNTER → 2024-09-04 08:57 | Outpatient (REF) | payer MEDICARE, OTHER, SELFPAY ==
--- OUTSIDE RECORDS SUMMARY | 2024-09-04 09:27 | XMS_ITS | Data Portability ---
Author Organization [facility], [address] Address [address] [place] [address] Assessment No assessment recorded. Plan of Treatment Reminders Order Date Submit Date Provider Last Modified By Organization Details Last Modified Time Details Appointments None recorded. Lab None recorded. Referral dermatologi st referral - Right Ear lesion suspicious of Basal Cell [place] 2022 023 [facility], [address], [address], [place], [address], 3 14:35:22 Procedures None recorded. Surgeries None recorded. Imaging None recorded. Medication Orders None recorded. Patient TargetsNo targets recorded. Patient InstructionsNo instructions recorded. 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 Right Ear lesion suspicious Basal Cell CA Right Ear lesion suspicious of Basal Cell CA Referring Physician: Zhang Dover, Urgent Care, Encounter Date: 09/14/2022 Problems Name Problem SNOMED Code Status Onset Date Resolution Date Notes Provider Name and Address Organization Details Recorded Time Hypertensive disorder 71071051 Active 2022 [facility] 3 14:06:09 Hypercholestero lemia 49033882 Active 2022 [facility] 3 14:06:14 [...] and Address Organization Details Last Updated DateTime 3 165.1 cm 20 kg/m2 79672.0 8 g 20 /min 100 % 100 % 94 /min 98.4 [degF] 148 mm[Hg] 83 mm[Hg] Karlie Silveira [employer] 14:08:14 Social History Question Answer Notes LastModified by Imagry Details LastModified Time Tobacco Smoking Status Former Smoker Karlie sanchez [employer] 09/14/2022 14:06:39 Have You Had Direct Contact, Or Contact During Intimacy, With Monkeypox Rash, Scabs, Or Body Fluids From A Person With Monkeypox? No Information not available 09/14/2022 Have You Recently Traveled Abroad? No Information not available 09/14/2022 Sex: Unknown Functional Status Question Answer Note LastModified by Imagry Details LastModified Time Do you use any illicit or recreational drugs? No Information not available 09/14/2022 Do you or have you ever used any other forms of tobacco or nicotine? No Information not available 09/14/2022 What is your level of alcohol consumption? Occasional Information not available 09/14/2022 Mental Status None recorded. Family History Relationship [...] Influenza, MDCK, quadrivalent, PF 2 completed Karlie Raoul null, PA - [facility] 09/14/2022 14:05:29 Influenza, recombinant, quadrivalent, PF 0 completed Kalrie Raoul null, PA - [facility] 09/14/2022 14:05:29 zoster recombinant 1 completed Karlie Raoul null, PA - [facility] 09/14/2022 14:05:29 zoster recombinant 0 completed Karlie Cutler null, PA - [facility] 09/14/2022 14:05:29 COVID-19, mRNA, LNP-S, PF, 100 mcg/0.5mL dose or 50 mcg/0.25mL dose 2 completed Karlie Raoul null, PA - [facility] 09/14/2022 14:05:29 COVID-19, mRNA, LNP-S, PF, 100 mcg/0.5mL dose or 50 mcg/0.25mL dose 1 completed Karlie Raoul null, PA - [facility] 09/14/2022 14:05:29 COVID-19, mRNA, LNP-S, PF, 30 mcg/0.3 mL dose 1 completed Karlie Cutler null, PA - [facility] 09/14/2022 14:05:29 COVID-19, mRNA, LNP-S, PF, 30 mcg/0.3 mL dose 1 completed Karlie Cutler null, PA - [facility] 09/14/2022 14:05:29 Tdap 0 completed Kralie Raoul null, PA - [facility] 09/14/2022 14:05:29 Influenza, split virus, trivalent, preservative 4 completed Karlie Cutler null, PA - [facility] 09/14/2022 14:05:29 Influenza, split virus, trivalent, PF 7 completed Karlie Raoul null, PA - [facility] 09/14/2022 14:05:29 Td (adult), 5 Lf tetanus toxoid, preservative free, adsorbed 9 completed Karlie Cutler null, PA - [facility] 09/14/2022 14:05:29 Influenza, split virus, quadrivalent, PF 9 completed Karlie Cutler null, PA - [facility] 09/14/2022 14:05:29 [...] SNOMED-CT Code Diagnosis ICD10 Code Diagnosis Note [id number] [facility] [address] [place] [address] 01/25/2017 10:16:14 01/25/2017 10:45:16 [id number] [facility] [address] [place] [address] 12/15/2017 08:21:00 12/15/2017 09:14:19 [id number] Zhang Dover MD [facility] [address] [place] [address] 09/14/2022 13:48:41 09/14/2022 14:34:15 Lesion of external ear 187472581 H61.899 Suspicious LKesion on the Pinna of left ear, needs Dermatolog y to rule out Basal Cell Ca.Advised to call Derm and PCP today Swelling o f toe of right foot [id number] 1187185 R60.0 Not painful or warm. Mildly swollenNo interventi on necessary at this timeFollow up Podiatry if worsens Health Concerns Section Related Observation LastModified by Organization Detai ls LastModified Time None Recorded Concern Status LastModified by Organization Details LastModified Time None Recorded Advance Directives Directive None Recorded Payers Insurance Date Sequence Insurance Name Policy Number Policy Bartholomew Covered Member ID Bartholomew Member ID Guarantor Name 09/14/2022 1 [facility] [id number] 01 [employer] [id number] [employer] Notes Date Note Type Note Provider Name and Address Organization Details Recorded Time 09/14/2022 text/html UC Rash/Skin LesionReported bypatient.Location:e ar Quality:redNotes:not iced by family memberAlso was told her right toe was infected because it looks swollen. There is no pain or warmth Zhang Dover MD [facility] [place], [address], [place] - [facility] 09/14/2022 15:46:09 OBGyn Episode No OBEpisode recorded.
--- OUTSIDE RECORDS SUMMARY | 2024-09-04 09:27 | XMS_ITS | Clinical Summary ---
Author Organization [facility] [place] [address] Care Team Providers Care Lead C Developer Name Role Phone Roland Tarango MD Primary Care Provider [phone] Social History Tobacco Use Types Packs/Day Years [...] age to complete this topic Care Teams Lead C Developer Relationship Specialty Start Date End Date Roland Tarango MD [address] [place] [phone] PCP - General Internal Medicine 02/08/17
== END ==
LOC: HO.SL 08:57
PROVIDERS: PCP Family Medicine; Visit Provider Physician Assistant Medical
DX: G47.19 Other hypersomnia (principal); G47.10 Hypersomnia, unspecified
CPT/HCPCS: 95806

== ENCOUNTER → 2024-09-04 09:18 | Outpatient (BNV) | payer MEDICARE, OTHER, SELFPAY | PROVIDERS: PCP Family Medicine; Visit Provider Psychiatry & Neurology Neurology | DX: G47.10 Hypersomnia, unspecified (principal) | CPT/HCPCS: 95806 ==

== ENCOUNTER 2024-09-28 09:52 | Outpatient (AMB) | payer MEDICARE, OTHER, SELFPAY ==
--- NOTE | 2024-09-28 09:56 | MHC.OFFVIS ---
Vital Signs 09/28/24 09:58 Height 5 ft Weight 119 lb BMI 23.2 BP 130/76 Blood Pressure Location Lt brachial Position Sitting Pulse 71 Pulse Source Pulse Oximeter Pulse Oximetry (%) 99 Oxygen Delivery Method Room Air Intake Visit Reasons: Follow up Apnea Intake Note: Patient presents follow up Apnea. Labs in chart. HST done 09/04 in chart( AHI<3, JOSH-95%, Snoring- 4.4%). Accompanied by: Self / Same As Patient Allergies No Known Allergies Allergy (Verified 09/28/24 10:00) HPI Comments Details: 64 year old female is referred for sleep evaluation by PCP. September 04 HST AHI <3 and Oxygen Nadirs to 95%, with 4.4% snoring. Labs reviewed with patient she has anemia, will continue to take B12 3x a week, as it was elevated in the past. BP has improved 160/100 at last visit, 130/ 76 and is her normal, she has white coat syndrome. She goes to sleep at various times 10pm and wakes up by 8am, with 2-3 bathroom breaks, she limits fluid to avoid bathroom breaks at night. [facility] and wakes others up in the room and feels tired most days. She does have intense dreams, and she is not bothered by them as she was a credit officer prior to halfway. Denies morning headaches. Denies RLS. Memory is good, mood and diet is stable, she says hydration needs improvement. She takes an edible once in a while to help relax, and at times will use Melatonin 5mg PO PRN for sleep or will take z-quil. She does not smoke or drink alcohol. [facility] Medical History Dysplasia of cervix, low grade (VANI 1) Hyperlipidemia White coat syndrome with hypertension HTN (hypertension) Anxiety Depression Surgical History H/O colonoscopy Hx of cervical discectomy Hx of cataract extraction History of ankle surgery Hx of breast surgery Social History Household Members: None Housing: House Alcohol intake: current Alcohol intake frequency: holidays/special occasions only Patient Tobacco Use Status: Never used Tobacco e-Cigarette/Vaping Use: Never Used Second Hand Smoke Exposure: No service: No Current occupational status: retired Current occupational exposures/hazards: No Sexual orientation: Straight/Heterosexual Gender identity: Female Cognitive needs: No Hearing needs: No Vision needs: No Female Reproductive History Menstrual Age of Menarche: 10 Physical Exam Vital Signs: Last Vital Signs Pulse 71 09/28/24 09:58 BP 130/76 09/28/24 09:58 Pulse Ox 99 09/28/24 09:58 Oxygen Delivery Method Room Air 09/28/24 09:58 BMI result Body Mass Index 23.2 She has white coat syndrome. Const General: cooperative, comfortable and no acute distress Orientation/consciousness: patient oriented x3 HEENT Face and sinus: Yes normal facial exam and Yes face symmetric Teeth and gingiva: other ([place]i score of 4) Eyes Pupils: Equal, round and reactive pupils present Neck Neck: Yes full ROM and Yes supple Resp Effort & Inspection: normal respiratory effort and able to speak in complete sentences Neuro General: patient oriented x3 and moves all extremities Cranial nerves: Yes CN's II-XII intact bilaterally, Yes Facial sensation intact/muscles of mastication intact, Yes Equal, round and reactive pupils present, Yes Normal accommodation reflex present, Yes Bilaterally intact EOM present, Yes Nystagmus not present, Yes Normal facial strength present, Yes Midline tongue present, Yes Ability to bilaterally rotate head present and Yes Ability to bilaterally elevate shoulders present Cognition (Neuro): normal cognition Gait exam (Neuro): Antalgic gait present Motor exam (neuro): 5/5 motor strength present throughout and Normal motor muscle tone present throughout Psych Appearance: grossly normal Attitude: cooperative Thought content: Normal thought content present Results Reviewed Results Reviewed: HST AHI <3 and oxygenation is 95% with 4% snoring. Assessment & Plan Assessment & Plan (1) Fatigue: Code(s): R53.83 - Other fatigue Category: Medical Qualifiers: Fatigue type: chronic, unspecified Qualified Code(s): R53.82 - Chronic fatigue, unspecified (2) Loud snoring: Code(s): R06.83 - Snoring Category: Medical Plan HST did not show JENNIFER AHI is <3 and oxygenation is 95% with 4% snoring. Pt. Education re: snore strips, oral appliance and sleep dentistry visit for snoring or ENT visit for polyps? Deviated septum. She declined today. Labs for fatigue, she has anemia, B12 was elevated now taking it 3x per week. Sleep Hygiene is provided. Patient Instructions: Sleep Hygiene provided: set a scheduled bedtime and wake time to help regulate the circadian rhythm and balance the release of pituitary hormones. Sleep in a dark room, temperatures below 68 degrees, and no devices n bed. Limit caffeinated products 6 hours prior to bed, and limit fluids 2-4 hours prior to bed. Gentle night yoga, diffusing essential oils, and playing soft music can be relaxing. Coding Level of Care Code Est Pt Level 4 (56244) Diagnoses Chronic fatigue R53.82 Fatigue type: chronic, unspecified Loud snoring R06.83 Time Spent (min) 20 Comment Improved.
[2024-09-28 09:58] VITALS: BP 130/76; PULSE 71; O2SAT 99; BMI 23.2
--- OUTSIDE RECORDS SUMMARY | 2024-09-28 10:30 | XMS_ITS | Data Portability ---
Author Organization [facility], [address] Address [address] [place] [address] Assessment No assessment recorded. Plan of Treatment Reminders Order Date Submit Date Provider Last Modified By Organization Details Last Modified Time Details Appointments None recorded. Lab None recorded. Referral dermatologi st referral - Right Ear lesion suspicious of Basal Cell [place] [address] 023 [facility], [address], [address], [place], [address], 3 14:35:22 Procedures None recorded. Surgeries None recorded. Imaging None recorded. Medication Orders None recorded. Patient TargetsNo targets recorded. Patient InstructionsNo instructions recorded. 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 [...] Updated DateTime 3 165.1 cm 20 kg/m2 51246.0 8 g 20 /min 100 % 100 % 94 /min 98.4 [degF] 148 mm[Hg] 83 mm[Hg] Karlie Silveira [employer] 14:08:14 Social History Question Answer Notes LastModified by Aqwise Details LastModified Time Tobacco Smoking Status Former Smoker Karlie sanchez [employer] 09/14/2022 14:06:39 Have You Had Direct Contact, Or Contact During Intimacy, With Monkeypox Rash, Scabs, Or Body Fluids From A Person With Monkeypox? No Information not available 09/14/2022 Have You Recently Traveled Abroad? No Information not available 09/14/2022 Sex: Unknown Functional Status Question Answer Note LastModified by Aqwise Details LastModified Time Do you use any [...] Influenza, recombinant, quadrivalent, PF 0 completed Karlie Fillmore null, PA - [facility] 09/14/2022 14:05:29 zoster recombinant 1 completed Karlie Raoul null, PA - [facility] 09/14/2022 14:05:29 zoster recombinant 0 completed Karlie Fillmore null, PA - [facility] 09/14/2022 14:05:29 COVID-19, mRNA, LNP-S, PF, 100 mcg/0.5mL dose or 50 mcg/0.25mL dose 2 completed Karlie Fillmore null, PA - [facility] 09/14/2022 14:05:29 COVID-19, mRNA, LNP-S, PF, 100 mcg/0.5mL dose or 50 mcg/0.25mL dose 1 completed Karlie Fillmore null, PA - [facility] 09/14/2022 14:05:29 COVID-19, mRNA, LNP-S, PF, 30 mcg/0.3 mL dose 1 completed Karlie Fillmore null, PA - [facility] 09/14/2022 14:05:29 COVID-19, mRNA, LNP-S, PF, 30 mcg/0.3 mL dose 1 completed Karlie Raoul null, PA - [facility] 09/14/2022 14:05:29 Tdap 0 completed Karlie Raoul null, PA - [facility] 09/14/2022 14:05:29 Influenza, split virus, trivalent, preservative 4 completed Karlie Raoul null, PA - [facility] [...] split virus, quadrivalent, PF 6 completed Karlie Aroul null, PA - [facility] 09/14/2022 14:05:29 Influenza, split virus, quadrivalent, PF 1 completed Karlie Fillmore null, PA - [facility] 09/14/2022 14:05:29 Influenza, split virus, quadrivalent, PF 5 completed Karlie Fillmore null, PA - [facility] 09/14/2022 14:05:29 Past Encounters Encounter ID Performer Location Encounter Start Date Encounter Closed Date Diagnosis/Indication Diagnosis SNOMED-CT Code Diagnosis ICD10 Code Diagnosis Note [id number] [facility] [address] [place] [address] 01/25/2017 10:16:14 01/25/2017 10:45:16 [id number] [facility] [address] [place] [address] 12/15/2017 08:21:00 12/15/2017 09:14:19 [id number] Zhang Dover MD [facility] [address] [place] [address] 09/14/2022 13:48:41 09/14/2022 14:34:15 Lesion of external ear 564037605 H61.899 Suspicious LKesion on the Pinna of left ear, needs Dermatolog y to rule out Basal Cell Ca.Advised to call Derm and PCP today Swelling o f toe of right foot [id number] 9246788 R60.0 Not painful or warm. Mildly swollenNo [...] Bartholomew Member ID Guarantor Name 09/14/2022 1 [facility] [id number] 01 [employer] [id number] [employer] Notes Date Note Type Note Provider Name and Address Organization Details Recorded Time 09/14/2022 text/html UC Rash/Skin LesionReported bypatient.Location:e ar Quality:redNotes:not iced by family memberAlso was told her right toe was infected because it looks swollen. There is no pain or warmth Zhang Dover MD [facility] [place], [address], [place] - [facility] 09/14/2022 15:46:09 OBGyn Episode No OBEpisode recorded.
== END 2024-09-28 10:30 | disposition home or self-care (01) ==
LOC: HO.HSMS 09:53
PROVIDERS: PCP Family Medicine; Visit Provider Physician Assistant Medical
DX: R53.82 Chronic fatigue, unspecified (principal); R06.83 Snoring
CPT/HCPCS: 99214

== ENCOUNTER → 2024-09-28 09:52 | Outpatient (BNVA) | payer MEDICARE, OTHER, SELFPAY | PROVIDERS: PCP Family Medicine; Visit Provider Physician Assistant Medical | DX: R53.82 Chronic fatigue, unspecified (principal); R06.83 Snoring | CPT/HCPCS: 99212 ==

== ENCOUNTER 2024-12-19 08:54 | Outpatient (AMB) | payer MEDICARE, OTHER, SELFPAY ==
--- NOTE | 2024-12-19 09:01 | A.OFFPC_ITS ---
Vital Signs 12/19/24 09:06 Height 5 ft Weight 117 lb BMI 22.8 BP 160/78 H Blood Pressure Location Lt brachial Position Sitting Respiration 15 Pulse 79 Pulse Source Pulse Oximeter Temp 97.9 F Temp Source Temporal Artery Scan Pulse Oximetry (%) 97 Oxygen Delivery Method Room Air Intake Visit Reasons: CPE with f/u labs and health maint. 30 mins Intake Note: Ping presents in the office today for her CPE and a review of her labs. Allergies No Known Allergies Allergy (Verified 12/19/24 09:04) Medication List - Last Reconciled 12/19/24 by Candelario Ennis MD atorvastatin 10 mg PO DAILY blood pressure monitor As directed cholecalciferol (vitamin D3) (Vitamin D3) 25 mcg PO .every other day fluticasone propionate 50 mcg/actuation 1 spray intranasal BEDTIME PRN lisinopril 10 mg PO DAILY loratadine 10 mg PO DAILY mecobalamin (vitamin B12) 1,000 mcg PO DAILY 90 days metoprolol succinate ER 100 mg PO DAILY 90 days Tobacco use date assessed: 12/19/24 Fall risk assessment: No Falls in past year Last assessed Fall Risk: 12/19/24 Dental Screening Dental Screen Date: 12/19/24 Did you have a dental visit in the last 12 months?: Yes Did you have a dental problem in the last 6 months where you did not have access to dental care?: No Was dental information given to patient?: Patient has dentist HPI CPE with f/u labs and health maint. 30 mins HPI Details 64 y/o female presents for a CPE with f/ u labs and health maint. No recent CPE labs to review. Some labs drawn in July which showed some anemia. BP today 160/78. 79p. She is on lisinopril 10mg daily, metoprolol 100mg. [facility] Medical History Dysplasia of cervix, low grade (VANI 1) Hyperlipidemia White coat syndrome with hypertension HTN (hypertension) Anxiety Depression Surgical History H/O colonoscopy Hx of cervical discectomy Hx of cataract extraction History of ankle surgery Hx of breast surgery Social History (Updated 12/19/24 @ 09:06 by Savana Delgado MA) Household Members: None Housing: House Alcohol intake: current Alcohol intake frequency: holidays/special occasions only Patient Tobacco Use Status: Never used Tobacco e-Cigarette/Vaping Use: Never Used Second Hand Smoke Exposure: No service: No Current occupational status: retired Current occupational exposures/hazards: No Sexual orientation: Straight/Heterosexual Gender identity: Female Cognitive needs: No Hearing needs: No Vision needs: No Female Reproductive History Menstrual Age of Menarche: 10 Questionnaire PHQ-9 Over the last 2 weeks, how often have you been bothered by any of the following problems? 1. Little interest or pleasure in doing things: nearly every day 2. Feeling down, depressed, or hopeless: not at all 3. Trouble falling or staying asleep, or sleeping too much: not at all 4. Feeling tired or having little energy: not at all 5. Poor appetite or overeating: not at all 6. Feeling bad about yourself - or that you are a failure or have let yourself or your family down: not at all 7. Trouble concentrating on things, such as reading the newspaper or watching television: not at all 8. Moving or speaking so slowly that other people could have noticed. Or the opposite - being so fidgety or restless that you have been moving around a lot more than usual: not at all 9. Thoughts that you would be better off or of hurting yourself in some way: not at all Total score: 3 Depression Screening Interpretation: Negative Depression Screening Done: Yes 05920 - PHQ-9 Billing: Yes Source: Developed by Drs. Leonel Meneses, Karin Allen, Calvin Borrero and colleagues, with an educational kathy from [employer]. Thrive Questionnaire Date Thrive assessed: 12/19/24 I am a: Patient What is your living situation today?: I have a steady place to live Within the past 12 months, did the food you bought not last and you didn't have the money to get more?: Never true Within the past 12 months, did you worry whether your food would run out before you got money to buy more?: Never true Do you have trouble paying for medicines?: No Do you have trouble getting transportation to medical appointments?: No Do you have trouble paying your heating and electricity bill?: No Do you have trouble taking care of your child, family member or friend?: No Do you have trouble with day-to-day activities such as bathing, preparing meals, shopping, managing finances, etc.?: No Are you currently unemployed and looking for a job?: No Are you interested in more education?: No Please select the resources that you would like help with: None Currently or been in a relationship where the following occur: No concerns reported THRIVE Score: 0 AUDIT C Alcohol Use Questionnaire (AUDIT-C) 1. How often do you have a drink containing alcohol?: 2-3 times a week 2. How many drinks containing alcohol do you have on a typical day when you are drinking?: 1 or 2 3. How often do you have six or more drinks on one occasion?: Never Total Score: 3 VIRGINIA-7 AMB Questionnaire VIRGINIA-7 Date VIRGINIA - 7 assessed: 12/19/24 Feeling nervous, anxious, or on edge: 0 = Not at all Not being able to stop or control worryin = Not at all Worrying too much about different things: 0 = Not at all Trouble relaxin = Not at all Being so restless that it is hard to sit still: 0 = Not at all Becoming easily annoyed or irritable: 0 = Not at all Feeling afraid as if something awful might happen: 0 = Not at all Total VIRGINIA-7 score (0-4 normal; 5-9 mild; 10-14 moderate; 15-21 severe): 0 Source: Developed by Drs. Leonel Meneses, Karin Allen, Calvin Borrero and colleagues, with an educational kathy from [employer]. VIRGINIA-7 Assessment Billing VIRGINIA-7 Assessment Tool: VIRGINIA-7 Assessment 42957 Review of Systems Const Denies chills, Denies fatigue, Denies fever(s), Denies headache(s) and Denies weakness Eyes Denies change in vision ENT Denies dizziness, Denies headache(s), Denies hearing loss, Denies nasal congestion, Denies sinus pain, Denies sinus pressure and Denies sore throat Card Denies chest pain, Denies lightheadedness, Denies dyspnea and Denies other ( palpitations) Resp Denies cough, Denies dyspnea and Denies wheezing GI Denies abdominal pain, Denies melena, Denies hematochezia, Denies change in bow el habits, Denies dyspepsia and Denies nausea Denies hematuria and Denies dysuria Musc Denies abnormal gait, Denies myalgias, Denies arthralgias, Denies numbness and Denies tingling Skin/Breast Denies rash, Denies unusual bruising and Denies wounds Neuro Denies abnormal gait, Denies dizziness, Denies headache(s), Denies memory loss, Denies numbness, Denies Sensory deficit (Neuro), Denies tingling and Denies weakness Psych Denies anxiety, Denies depression and Denies memory loss Endo Denies cold intolerance, Denies fatigue, Denies heat intolerance, Denies polydipsia and Denies polyuria Conor/Lymph Denies easy bleeding and Denies easy bruising Aller/Immun Denies wheezing Physical exam (Primary Care) Vital Signs: Last Vital Signs Temp 97.9 F 12/19/24 09:06 Pulse 79 12/19/24 09:06 Resp 15 12/19/24 09:06 BP 160/78 H 12/19/24 09:06 Pulse Ox 97 12/19/24 09:06 Oxygen Delivery Method Room Air 12/19/24 09:06 BMI result Body Mass Index 22.8 Tobacco/Smoking Status: Tobacco use Status Tobacco use date assessed 12/19/24 12/19/24 09:09 Patient Tobacco Use Status Never used Tobacco 12/19/24 09:06 e-Cigarette/Vaping Use Never Used 12/19/24 09:06 PHQ-9: PHQ-9 Score PHQ-9: Total score 3 12/19/24 10:14 Depression Screening Interpretation: Negative Thrive Assessment: Date of Thrive Assessment Date Thrive assessed 12/19/24 12/19/24 09:04 Currently or been in a relationship where the following occur: No concerns reported Const General: no acute distress, well developed, alert and awake Nutritional Appearance: well nourished Orientation/consciousness: patient oriented x3 HENMT Head: Yes normocephalic and Yes atraumatic Ears: hearing grossly normal bilaterally and TM's normal bilaterally General nose exam: Normal external nose present and Normal nares present Mouth: Normal oral and palatal mucosa present and moist mucous membranes Teeth and gingiva: dentition normal Throat: Yes posterior oropharynx normal Eyes General: appearance normal, both eyes and all related structures Pupils: Equal, round and reactive pupils present and Pupil accommodation reflex normal EOM: EOMs intact bilaterally Neck Neck: Yes normal visual inspection, Yes no lymphadenopathy and Yes trachea midline Thyroid: Thyroid normal Carotids: no bruits Lymphatic: no lymphadenopathy noted Chest Chest palpation & inspection: normal inspection of the chest Resp Effort & Inspection: normal respiratory effort Auscultation: clear to auscultation bilaterally Cardio Rate: regular rate Rhythm: regular rhythm Heart sounds: S1 normal heart sound present, S2 normal heart sound present, no gallops, no murmurs and no rubs Bruits: no abdominal aortic bruits and no carotid bruits GI Palpation (GI): No Abdominal aortic bruit present, Soft to palpation, nontender, No hepatosplenomegaly present and No Rebound tenderness present Auscultation: normal bowel sounds General: Yes no CVA tenderness Back/Spine/Pelvis Back: no CVA tenderness Cervical Spine: cervical ROM normal and No Cervical spine tenderness Thoracic/Lumbar Spine: thoraco-lumbar ROM normal, No pain with thoraco-lumbar ROM, No thoracic spinal tenderness and No lumbar spinal tenderness Skin Lesions: no lesions Rashes: no rashes Trauma: no lacerations or abrasions Wounds: no wounds Nails: normal Neuro General: patient oriented x3 Cranial nerves: Yes Equal, round and reactive pupils present Cognition (Neuro): normal cognition Gait exam (Neuro): Normal gait present Motor exam (neuro): 5/5 motor strength present throughout Sensory Exam: No Sensory deficit (Neuro) Deep tendon reflexes (DTR's): Right patellar reflex intensity grade: 2+ and Left patellar reflex intensity grade: 2+ Extrem General: Yes normal to inspection and No edema Psych Appearance: grossly normal Affect: normal affect Attitude: cooperative Thought process: Normal thought process present Coding Level of Care Code Est Pt Level 3 (82732) Est Pt Prev Care >65y(99997) Diagnoses Adult general medical exam Z00.00 HTN (hypertension) I10 Anemia D64.9 Osteopenia M85.80 Dermatitis L30.9 Screening for colon cancer Z12.11 Screening for cervical cancer Z12.4 Breast cancer screening by mammogram Z12.31 Additional Codes VIRGINIA-7 Assessment Billing - VIRGINIA-7 Assessment Tool: VIRGINIA-7 Assessment 94551 ([id number]) PHQ-9 - 94284 - PHQ-9 Billing: Yes ([id number]) Assessment & Plan Assessment & Plan (1) Adult general medical exam: Code(s): Z00.00 - Encounter for general adult medical examination without abnormal findings Category: Medical Plan: 64-year-old female presents for complete physical exam Encouraged healthy diet with active lifestyle and plenty of exercise (2) HTN (hypertension): Code(s): I10 - Essential (primary) hypertension Category: Medical Plan: Blood pressure is too high today. Goal is less than 140/90 Increase lisinopril and continue metoprolol as prescribed (3) Anemia: Code(s): D64.9 - Anemia, unspecified Category: Medical Plan: Mild/moderate chronic anemia Referred to Hematology-Oncology (4) Osteopenia: Code(s): M85.80 - Other specified disorders of bone density and structure, unspecified site Category: Medical Plan: Encouraged good sources of calcium and vitamin-D (5) Dermatitis: Code(s): L30.9 - Dermatitis, unspecified Category: Medical Plan: Patient says she was given a topical cream. She does not recall what medication or cream this was. She will call with name so I can send a refill (6) Screening for colon cancer: Code(s): Z12.11 - Encounter for screening for malignant neoplasm of colon Category: Medical Plan: She had a colonoscopy in 2020 and was told to follow-up in 10 years Up-to-date (7) Screening for cervical cancer: Code(s): Z12.4 - Encounter for screening for malignant neoplasm of cervix Category: Medical Plan: Followed by [facility] motorcycle technician Up-to-date (8) Breast cancer screening by mammogram: Code(s): Z12.31 - Encounter for screening mammogram for malignant neoplasm of breast Category: Medical Plan: Mammogram was negative for malignancies in April Up-to-date Orders: Referrals Hematology & Oncology Referral D64.9 - Anemia, unspecified Medications: Changed From lisinopril 10 mg PO DAILY 90 tabs 0RF To lisinopril 20 mg PO DAILY 90 tabs 3RF 90 days Refilled mecobalamin (vitamin B12) 1,000 mcg PO DAILY 90 tabs 2RF 90 days D64.9 - Anemia, unspecified
[2024-12-19 09:06] VITALS: BP 160/78; PULSE 79; RESP 15; TEMP 36.6; O2SAT 97; BMI 22.8
--- OUTSIDE RECORDS SUMMARY | 2024-12-19 09:28 | XMS_ITS | Clinical Summary ---
Author Organization [employer] [facility] [place] [address] Care Team Providers Care Platen Builder Up Name Role Phone Roland Tarango MD Primary Care Provider [phone] Social History Tobacco Use Types Packs/Day Years [...] 2009 Zoster Vaccines (1 of 2) 2009 Depression Screening 04/18/2024 COVID-19 Vaccine ( - 2023-2 5 season) 2024 Influenza Vaccine (#1) 2024 RSV Immunization Adult Patie nts (1 [...] age to complete this topic Care Teams Platen Builder Up Relationship Specialty Start Date End Date Roland Tarango MD [address] [place] [id number] PCP - General Internal Medicine 02/08/17
--- OUTSIDE RECORDS SUMMARY | 2024-12-19 09:28 | XMS_ITS | Patient Health Record ---
Author Organization [facility] Address [address] [place] [address] Care Team Providers Care Content Publisher Name Role Phone Candelario Ennis Primary Care Provider Unavailab Leonel Mitchell Unavailable [phone] Reason For Referral No Information Plan Of Treatment No Information Insurance Providers Payer Name Payer Address Payer Phone Subscriber Number Group Number Insured Name Patient Relationship to Insured Coverage Start Date Coverage End Date [facility] [address] [facility] [phone] [id number] MARISSA LION Self - patient is the insured
== END 2024-12-19 10:14 | disposition home or self-care (01) ==
LOC: HO.HMCFM 08:55
PROVIDERS: PCP Family Medicine; Visit Provider Family Medicine
DX: Z00.00 Encounter for general adult medical examination without abnormal findings (principal); I10 Essential (primary) hypertension; D64.9 Anemia, unspecified; M85.80 Other specified disorders of bone density and structure, unspecified site; L30.9 Dermatitis, unspecified; Z12.11 Encounter for screening for malignant neoplasm of colon; Z12.31 Encounter for screening mammogram for malignant neoplasm of breast

== ENCOUNTER → 2024-12-19 08:54 | Outpatient (BNVA) | payer MEDICARE, OTHER, SELFPAY | PROVIDERS: PCP Family Medicine; Visit Provider Family Medicine | DX: Z00.00 Encounter for general adult medical examination without abnormal findings (principal); I10 Essential (primary) hypertension; D64.9 Anemia, unspecified; L30.9 Dermatitis, unspecified; M85.80 Other specified disorders of bone density and structure, unspecified site | CPT/HCPCS: 96127; 99212; 99397 ==

== ENCOUNTER → 2025-03-05 13:00 | Outpatient (BNV) | payer MEDICARE, OTHER, SELFPAY | PROVIDERS: Visit Provider Internal Medicine | DX: D64.9 Anemia, unspecified (principal); E83.119 Hemochromatosis, unspecified; E87.1 Hypo-osmolality and hyponatremia | CPT/HCPCS: 99204; G2211 ==

== ENCOUNTER 2025-03-12 08:39 | Outpatient (AMB) | payer MEDICARE, OTHER, SELFPAY ==
--- NOTE | 2025-03-12 08:50 | MHC.PC.OV ---
Vital Signs 03/12/25 08:58 Height 5 ft 6 in Weight 115 lb 6 oz BMI 18.6 BP 152/78 H Blood Pressure Location Lt brachial Position Sitting Respiration 15 Pulse 66 Pulse Source Pulse Oximeter Temp 98 F Temp Source Temporal Artery Scan Pulse Oximetry (%) 100 Oxygen Delivery Method Room Air Intake Visit Reasons: f/u HTN, chronic conditions Intake Note: Ping presents in the office today for a follow up to hypertension and other chronic conditions. Accounts Receivable Manager Required: No Post menopausal: Yes Allergies No Known Allergies Allergy (Verified 03/12/25 08:57) Medication List - Last Reconciled 03/12/25 by Candelario Ennis MD atorvastatin 10 mg PO DAILY blood pressure monitor As directed cholecalciferol (vitamin D3) (Vitamin D3) 25 mcg PO .every other day fluticasone propionate 50 mcg/actuation 1 spray intranasal BEDTIME PRN lisinopril 20 mg PO DAILY 90 days loratadine 10 mg PO DAILY mecobalamin (vitamin B12) 1,000 mcg PO DAILY 90 days metoprolol succinate ER 100 mg PO DAILY 90 days triamcinolone acetonide 0.1% 1 appl topical BID 14 days Tobacco use date assessed: 03/12/25 Dental Screening Dental Screen Date: 03/12/25 Did you have a dental visit in the last 12 months?: Yes Did you have a dental problem in the last 6 months where you did not have access to dental care?: No Was dental information given to patient?: Patient has dentist HPI f/u HTN, chronic conditions HPI Details 65 y/o female presents to f/u HTN, chronic conditions. BP today 152/78, 66p. She is on lisinopril 20mg, metoprolol 100mg daily. A1c today 5.1%. HPI Comments History of Present Illness Details Documentation assistance for Candelario Ennis MD, was provided by Reece Dougherty,? Rotary Driller on 03/12/2025 at 9:12 AM GREGORY. I, Dr. Ennis, have read, observed, and verified documentation. ?? [facility] Medical History Dysplasia of cervix, low grade (VANI 1) Hyperlipidemia White coat syndrome with hypertension HTN (hypertension) Anxiety Depression Surgical History H/O colonoscopy Hx of cervical discectomy Hx of cataract extraction History of ankle surgery Hx of breast surgery Social History (Updated 03/12/25 @ 08:58 by Savana Delgado CMA) Household Members: Children and None Housing: House Alcohol intake: current Alcohol intake frequency: holidays/special occasions only Patient Tobacco Use Status: Former Tobacco user Tobacco use type: Cigarette e-Cigarette/Vaping Use: Never Used Second Hand Smoke Exposure: No Use of substances other than those prescribed or required for medical reasons: Yes Substance Use Type: Marijuana Current occupational status: retired Current occupational exposures/hazards: No Sexual orientation: Straight/Heterosexual Gender identity: Female Cognitive needs: No Hearing needs: No Vision needs: No Female Reproductive History Menstrual Age of Menarche: 10 Questionnaire Thrive Questionnaire Date Thrive assessed: 12/19/24 I am a: Patient What is your living situation today?: I have a steady place to live Within the past 12 months, did the food you bought not last and you didn't have the money to get more?: Never true Within the past 12 months, did you worry whether your food would run out before you got money to buy more?: Never true Do you have trouble paying for medicines?: No Do you have trouble getting transportation to medical appointments?: No Do you have trouble paying your heating and electricity bill?: No Do you have trouble taking care of your child, family member or friend?: No Do you have trouble with day-to-day activities such as bathing, preparing meals, shopping, managing finances, etc.?: No Are you currently unemployed and looking for a job?: No Are you interested in more education?: No Please select the resources that you would like help with: None Currently or been in a relationship where the following occur: No concerns reported THRIVE Score: 0 VIRGINIA-7 AMB Questionnaire VIRGINIA-7 Date VIRGINIA - 7 assessed: 12/19/24 Source: Developed by Drs. Leonel Meneses, Karin Allen, Calvin Borrero and colleagues, with an educational kathy from [employer]. Review of Systems Const Denies chills, Denies fatigue, Denies fever(s), Denies headache(s) and Denies weakness ENT Denies dizziness and Denies headache(s) Card Denies dyspnea Resp Denies cough, Denies dyspnea, Denies wheezing and Denies other (shortness of breath) Musc Denies numbness and Denies tingling Neuro Denies dizziness, Denies headache(s), Denies numbness, Denies tingling and Denies weakness Psych Denies anxiety and Denies depression Endo Denies fatigue Aller/Immun Denies wheezing Physical exam (Primary Care) Vital Signs: Last Vital Signs Temp 98 F 03/12/25 08:58 Pulse 66 03/12/25 08:58 Resp 15 03/12/25 08:58 BP 152/78 H 03/12/25 08:58 Pulse Ox 100 03/12/25 08:58 Oxygen Delivery Method Room Air 03/12/25 08:58 BMI result Body Mass Index 18.6 Tobacco/Smoking Status: Tobacco use Status Tobacco use date assessed 03/12/25 03/12/25 09:01 Patient Tobacco Use Status Former Tobacco user 03/12/25 08:58 Tobacco use type Cigarette 03/12/25 08:58 e-Cigarette/Vaping Use Never Used 03/12/25 08:58 Thrive Assessment: Date of Thrive Assessment Date Thrive assessed 12/19/24 03/12/25 08:52 Currently or been in a relationship where the following occur: No concerns reported Const General: well developed; No acute distress Nutritional Appearance: well nourished Orientation/consciousness: patient oriented x3 HENMT Head: Yes normocephalic and Yes atraumatic Eyes General: appearance normal, both eyes and all related structures Pupils: Equal, round and reactive pupils present EOM: EOMs intact bilaterally Resp Effort & Inspection: normal respiratory effort Auscultation: clear to auscultation bilaterally Cardio Rate: regular rate Rhythm: regular rhythm Heart sounds: S1 normal heart sound present, S2 normal heart sound present, no gallops, no murmurs and no rubs Neuro General: patient oriented x3 and gait normal Cranial nerves: Yes Equal, round and reactive pupils present Psych Affect: normal affect Results AMB Hemoglobin A1c AMB Hemoglobin A1c 5.1 % Last Edit by Savana Delgado CMA on 03/12/25 09:19 Results Reviewed Results Reviewed: Laboratory Last Values Hgb A1c (Clinic) 5.1 % (4.0-6.0) 03/12/25 09:18 Coding Level of Care Code Est Pt Level 3 (68949) Diagnoses Elevated glucose level R73.09 HTN (hypertension) I10 Assessment & Plan Assessment & Plan (1) Elevated glucose level: Code(s): R73.09 - Other abnormal glucose Category: Medical Plan: A1c 5.1%; normal range. Encouraged diet lower sugars and starches (2) HTN (hypertension): Code(s): I10 - Essential (primary) hypertension Category: Medical Plan: Blood pressure had been high at last visit and I increased lisinopril from 10 mg daily to 20 mg daily. Continue metoprolol as prescribed Blood pressure has improved but is still elevated. Goal is less than 140/90 Changing lisinopril to lisinopril-hydrochlorothiazide 20/12.5 mg daily, combo pill. She will continue metoprolol as prescribed Orders: Orders AMB Hemoglobin A1c Today R73.09 - Other abnormal glucose Medications: New lisinopril-hydrochlorothiazide 20-12.5 mg 1 tab PO QAM 90 tabs 3RF 90 days Refilled triamcinolone acetonide 0.1% 1 appl topical BID 60 grams 2RF 14 days Discontinued lisinopril Discontinued Reason: Doctor's Order 20 mg PO DAILY 90 days 90 tabs 3RF
[2025-03-12 08:58] VITALS: BP 152/78; PULSE 66; RESP 15; TEMP 36.6; O2SAT 100; BMI 18.6
--- OUTSIDE RECORDS SUMMARY | 2025-03-12 09:00 | XMS_ITS | Clinical Summary ---
Author Organization [employer] [facility] [place] [address] Care Team Providers Care Entertainment Dancer Name Role Phone Roland Tarango MD Primary Care Provider [phone] Social History Tobacco Use Types Packs/Day Years [...] DTaP,Tdap,and Td Vaccines (1 - Tdap) 1978 Pneumococcal Vaccine: 50+ Ye ars (1 of 1 - PCV) 2009 Zoster Vaccines (1 of 2) 2009 Depression Screening 04/18/2024 COVID-19 Vaccine (1 - 2024-2 6 season) 2024 Influenza Vaccine (#1) 2024 RSV [...] age to complete this topic Care Teams Entertainment Dancer Relationship Specialty Start Date End Date Roland Tarango MD [address] [place] [id number] PCP - General Internal Medicine 02/08/17
--- OUTSIDE RECORDS SUMMARY | 2025-03-12 09:00 | XMS_ITS | Data Portability ---
Author Organization [facility], [id number] Address [address] [place] [address] Assessment No assessment recorded. Plan of Treatment Reminders Order Date Submit Date Provider Last Modified By Organization Details Last Modified Time Details Appointments None recorded. Lab None recorded. Referral dermatologi st referral - Right Ear lesion suspicious of Basal Cell CA 2022 023 [facility], [address], [address], [place], [address], 3 14:35:22 Procedures None recorded. Surgeries None recorded. Imaging None recorded. Medication Orders None recorded. Patient TargetsNo targets recorded. Patient InstructionsNo instructions recorded. Reason for Referral Veneer Patcher Referral for L esion of external ear Right Ear lesion suspicious Basal Cell CA Right Ear lesion suspicious of Basal Cell CA Referring Physician: Zhang Dover, Urgent Care, Encounter Date: 09/14/2022 Problems Name Problem SNOMED Code Status Onset Date Resolution Date Notes Provider Name and Address Organization Details Recorded Time Hypertensive disorder 16333302 Active 2022 [facility] 14:06:09 Hypercholestero lemia 42634341 Active 2022 [facility] [...] [Score] - Reported Respiratory rate Oxygen saturation Heart rate Body temperature Systolic And Diastolic Provider Name and Address Organization Details Last Updated DateTime 3 165.1 cm 20 kg/m2 41764.0 8 g 0 20 /min 100 % 94 /min 98.4 [degF] 148/83 mm[Hg] Karlie [email or web address] [email or web address] 14:08:14 Social History Question Answer Notes LastModified by [employer] Details LastModified Time Tobacco Smoking Status Former Smoker Karlie [email or web address] 09/14/2022 14:06:39 Have You Had Direct Contact, Or Contact During Intimacy, With Monkeypox Rash, Scabs, Or Body Fluids From A Person With Monkeypox? No Information not available 09/14/2022 Have You Recently Traveled Abroad? No Information not available 09/14/2022 Sex: Unknown Functional Status Question Answer Note LastModified by [employer] Details LastModified Time Do you use any [...] Influenza, MDCK, quadrivalent, PF 2 completed Karlie Berry null, PA - [facility] 09/14/2022 14:05:29 Influenza, recombinant, quadrivalent, PF 0 completed Karlie Raoul null, PA - [facility] 09/14/2022 14:05:29 zoster recombinant 1 completed Karlie Berry null, PA - [facility] 09/14/2022 14:05:29 zoster recombinant 0 completed Karlie Berry null, PA - [facility] 09/14/2022 14:05:29 COVID-19, mRNA, LNP-S, PF, 100 mcg/0.5mL dose or 50 mcg/0.25mL dose 2 completed Karlie Raoul null, PA - [facility] 09/14/2022 14:05:29 COVID-19, mRNA, LNP-S, PF, 100 mcg/0.5mL dose or 50 mcg/0.25mL dose 1 completed Karlie Berry null, PA - [facility] 09/14/2022 14:05:29 COVID-19, mRNA, LNP-S, PF, 30 mcg/0.3 mL dose 1 completed Karlie Raoul null, PA - [facility] 09/14/2022 14:05:29 COVID-19, mRNA, LNP-S, PF, 30 mcg/0.3 mL dose 1 completed Karlie Raoul null, PA - [facility] 09/14/2022 14:05:29 Tdap 0 completed Karlie Berry null, PA - [facility] 09/14/2022 14:05:29 Influenza, split virus, trivalent, preservative 4 completed Karlie Berry null, PA - [facility] 09/14/2022 14:05:29 Influenza, split virus, trivalent, PF 7 completed Karlie Raoul null, PA - [facility] 09/14/2022 14:05:29 Td (adult), 5 Lf tetanus toxoid, preservative free, adsorbed 9 completed Karlie Berry null, PA - [facility] 09/14/2022 14:05:29 Influenza, split virus, quadrivalent, PF 9 completed Karlie Berry null, PA - [facility] 09/14/2022 14:05:29 Influenza, split virus, quadrivalent, PF 6 completed Karlie Berry null, PA - [facility] 09/14/2022 14:05:29 Influenza, split virus, quadrivalent, PF 1 completed Karlie Berry null, PA - [facility] 09/14/2022 14:05:29 Influenza, split virus, quadrivalent, PF 5 completed Karlie Raoul null, PA - [facility] 09/14/2022 14:05:29 Past Encounters Encounter ID Performer Location Encounter Start Date Encounter Closed Date Diagnosis/Indication Diagnosis SNOMED-CT Code Diagnosis ICD10 Code Diagnosis IMO Codes Diagnosis Note [id number] [facility] [address] 01/25/2017 10:16:14 01/25/2017 10:45:16 [id number] [facility] [address] [address] 12/15/2017 08:21:00 12/15/2017 09:14:19 [id number] Zhnag Dover MD _[address] [address] 09/14/2022 13:48:41 09/14/2022 14:34:15 Lesion of external ear 236756654 H61.899 Suspicious LKesion on the Pinna of left ear, needs Dermatolog y to rule out Basal Cell Ca.Advised to call Derm and PCP today Swelling o f toe of right foot [id number] R60.0 Not painful or warm. Mildly swollenNo [...] ID Bartholomew Member ID Guarantor Name 09/14/[address] [place] [address] [id number] Ping Lucero Duke [id number] Ping Lucero Duke Notes Date Note Type Note Provider Name and Address Organization Details Recorded Time 09/14/2022 text/html UC Rash/Skin LesionReported by PatientHPIFor quality, patient reportsred. For location, patient reportsear.noticed by family memberAlso was told her right toe was infected because it looks swollen. There is no pain or warmth Zhang Dover MD [facility] [place], [address], PA - [facility] 09/14/2022 15:46:09 OBGyn Episode No OBEpisode recorded.
== END 2025-03-12 09:28 | disposition home or self-care (01) ==
LOC: HO.HMCFM 08:40
PROVIDERS: PCP Family Medicine; Visit Provider Family Medicine
DX: R73.09 Other abnormal glucose (principal); I10 Essential (primary) hypertension

== ENCOUNTER → 2025-03-12 08:39 | Outpatient (BNVA) | payer MEDICARE, OTHER, SELFPAY | PROVIDERS: PCP Family Medicine; Visit Provider Family Medicine | DX: R73.09 Other abnormal glucose (principal); I10 Essential (primary) hypertension | CPT/HCPCS: 83036; 99212 ==